=== PATIENT | male | born 1995 ===

== ENCOUNTER 2024-04-22 12:12 | Inpatient (IN) ==
[2024-04-22 13:24] LABS: BASOPHILS % (AUTO) 0.4 %; EOSINOPHILS % (AUTO) 0.1 %; HCT - HEMATOCRIT 42.2 % (42.0-52.0); HGB - HEMOGLOBIN 13.9 g/dL (14.0-18.0); MEAN CORPUSCULAR HEMOGLOBIN 29.9 pg (27.0-31.0); MEAN CORPUSCULAR HGB CONC 32.9 g/dL (32.0-36.0); MEAN CORPUSCULAR VOLUME 90.8 fL (80.0-94.0); MEAN PLATELET VOLUME 8.5 fL (7.4-11.4); MONOCYTES % (AUTO) 6.8 %; PLT - PLATELET COUNT 404 10^3/uL (130-450); RED BLOOD COUNT 4.65 10^6/uL (4.70-6.10); RED CELL DISTRIBUTION WIDTH 12.9 % (12.0-15.0); WHITE BLOOD COUNT 21.2 x10^3/uL (4.8-10.8)
[2024-04-22 13:38] LABS: ALBUMIN 3.8 g/dL (3.2-5.5); ALBUMIN/GLOBULIN RATIO 0.8 (1.0-2.2); BILIRUBIN,TOTAL 0.5 mg/dL (0.2-1.0); CALCIUM 9.6 mg/dL (8.5-10.3); CREATININE 1.3 mg/dL (0.6-1.3); POTASSIUM 4.2 mmol/L (3.5-4.5); TOTAL PROTEIN 8.4 g/dL (6.4-8.9)
[2024-04-22 13:55] LABS: SLIDE REVIEW? Indicated
[2024-04-22 13:56] LABS: ABNORMAL LYMPHS % (MANUAL) 0 %
[2024-04-22 14:01] LABS: BAND NEUTROPHILS % (MANUAL) 13 %; DIFFERENTIAL COMMENT MANUAL DIFFERENTIAL; LYMPHOCYTES # (MANUAL) 1.3 10^3/uL (1.5-3.5); LYMPHOCYTES % (MANUAL) 6 %; MONOCYTES # (MANUAL) 1.7 10^3/uL (0.0-1.0); NEUTROPHILS # (MANUAL) 18.2 10^3/uL (1.5-6.6)
[2024-04-22 14:03] LABS: PLATELET ESTIMATE, MANUAL NORMAL (130-450,000) (NORMAL); PLATELET MORPHOLOGY NORMAL APPEARANCE (NORMAL); RBC MORPHOLOGY (MULTIPLE) NORMAL APPEARANCE (NORMAL); WBC MORPHOLOGY (MULTIPLE) 2+ TOXIC GRANULATION (NORMAL)
[2024-04-22] MEDS ORDERED: iohexoL-300 100 ML VIAL ONE ×2 (16:37→21:16)
[2024-04-22] MEDS ORDERED: DIATRIZOATE MEGLU/DIATRIZO SOD 30 ML BOTTLE PO ONE (16:37)
--- NOTE | 2024-04-22 16:37 | ED Physician Documentation ---
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 He says he only spent 1 night in the hospital and did not have a drain so presume it was not widely perforated anyway. He is not improving as would be expected with night sweats and persistent right sided abdominal pain. No measured fevers. He is moving his bowels okay. No nausea. Meds/Allgy Home Medications Ambulatory Orders Medication Instructions Recorded Confirmed hydrocodone 5 mg-acetaminophen 325 1 tab PO QID PRN pain 04/22/24 04/22/24 mg tablet ibuprofen 200 mg capsule 200 mg PO Q8H 04/22/24 04/22/24 Allergies Allergies Allergy/AdvReac Type Severity Reaction Status Date / Time No Known Drug Allergies Allergy Verified 04/22/24 12:43 [facility] Medical History Medical History (Updated 04/22/24 @ 22:09 by Deangelo Garcia MD) No pertinent past medical history Surgical History Surgical History (Updated 04/22/24 @ 16:52 by Tracey Saini RN) History of appendectomy Social History Social History (Updated 04/22/24 @ 16:52 by Tracey Saini RN) Smoking Status: Never smoker Do you vape?: No Relationship: Do you feel safe in your home environment?: Yes Suffered physical, verbal, emotional, or financial abuse?: No Exam Constitutional normal general appearance and no apparent distress Gastrointestinal He is quite tender to the right abdomen with positive Rovsing sign and some rebound tenderness. Neurology GCS 15 Results Vitals Vitals: Vital Signs - 24 hr 04/22/24 12:43 04/22/24 18:13 Temperature 36.6 C 36.7 C Temperature Source Tympanic Temporal Artery Scan Pulse Rate 90 75 Respiratory Rate 18 16 Blood Pressure 102/57 L 119/57 L O2 Saturation 98 98 O2 Source Room air Room air Pain Intensity 6 2 Oxygen O2 Source Room air Labs Labs: Laboratory Tests 04/22/24 04/22/24 13:19 16:41 WBC 21.2 H RBC 4.65 L Hgb 13.9 L Hct 42.2 MCV 90.8 MCH 29.9 MCHC 32.9 RDW 12.9 Plt Count 404 MPV 8.5 Neut # (Auto) Not Reportable Lymph # (Auto) Not Reportable [place] # (Auto) Not Reportable Eos # (Auto) Not Reportable Baso # (Auto) Not Reportable Absolute Nucleated RBC Not Reportable Total Counted 100 Band Neuts % (Manual) 13 H Abnorm Lymph % (Manual) 0 Nucleated RBC % Not Reportable Neutrophils # (Manual) 18.2 H Lymphocytes # (Manual) 1.3 L Monocytes # (Manual) 1.7 H Eosinophils # (Manual) 0.0 Basophils # (Manual) 0.0 Differential Comment MANUAL DIFFERENTIAL Manual Slide Review Indicated WBC Morphology 2+ TOXIC GRANULATION Platelet Estimate NORMAL (130-450,000) Platelet Morphology NORMAL APPEARANCE RBC Morph Micro Appear NORMAL APPEARANCE Sodium 134 L Potassium 4.2 Chloride 96 L Carbon Dioxide 30 Anion Gap 8.0 BUN 22 H Creatinine 1.3 Estimated GFR (MDRD) 65 L Glucose 117 H Calcium 9.6 Total Bilirubin 0.5 AST 67 H ALT 153 H Alkaline Phosphatase 128 H Total Protein 8.4 Albumin 3.8 Globulin 4.6 H Albumin/Globulin Ratio 0.8 L Lipase 15 Urine Color YELLOW Urine Clarity CLEAR Urine pH 6.0 Ur Specific [place] >=1.030 H Urine Protein 30 H Urine Glucose (UA) NEGATIVE Urine Ketones NEGATIVE Urine Occult Blood NEGATIVE Urine Nitrite NEGATIVE Urine Bilirubin NEGATIVE Urine Urobilinogen 0.2 (NORMAL) Ur Leukocyte Esterase NEGATIVE Urine RBC None Seen Urine WBC 0-3 Ur Squamous Epith Cells NONE SEEN Urine Bacteria None Seen Urine Casts 0-2 Hyaline Casts Ur Microscopic Review INDICATED Urine Culture Comments NOT INDICATED Rads (name of study) CT A/P: Relevant Findings:: Final report received and EMP independent interpret ation of test Interpretation: Stomach, bowel and peritoneum: As seen on earlier studies, there is significant wall thickening involving ascending colon with marked narrowing of the lumen. Ill-defined peripherally enhancing fluid collection and air is seen involving posterior lateral wall of the ascending colon with the largest pocket measures 4.5 x 2.8 x 7.7 cm in size in right lower quadrant series 287, series 6 image 26 and series 4 image 50. No definite extravasated oral contrast into this area is seen,. No other area of abnormal bowel wall thickening. PD Medical Decision Making ED course ED course: 28-year-old gentleman is 2 weeks out laparoscopic appendectomy that was reported to be uncomplicated per his description with persistent abdominal pain, some concerning signs on exam, he has a white count of 21,000 with a bandemia, modest elevation in his liver enzymes. Will obtain CT imaging. He declines anything for pain on initial evaluation. Subsequent imaging demonstrated a large pelvic abscess. Discussed with radiologist who felt he could be drained interventionally here. Discussed with our on-call surgeon, Dr Ramirez who will follow along, decision to admit made at 9:55 PM on April 22, unfortunately there are no beds available in the hospital and he is currently third in line boarding for admission in the emergency department. Discharge Plan Discharge Patient Disposition: ED Place in Observation Condition: Stable Clinical Impression: Abscess, intra-abdominal, postoperative Prescriptions: No Action hydrocodone-acetaminophen 5-325 mg tablet 1 tab PO QID PRN (Reason: pain) ibuprofen 200 mg capsule 200 mg PO Q8H Print Language: Urdu Stand Alone Forms: PCP List
[2024-04-22 16:55] LABS: BILIRUBIN,URINE NEGATIVE (NEGATIVE); GLUCOSE, URINE (UA) NEGATIVE (NEGATIVE); KETONES,URINE (UA) NEGATIVE (NEGATIVE); LEUKOCYTE ESTERASE, URINE NEGATIVE (NEGATIVE); NITRITE,URINE NEGATIVE (NEGATIVE); OCCULT BLOOD,URINE NEGATIVE (NEGATIVE); PROTEIN,URINE 30 mg/dL (NEGATIVE); UROBILINOGEN,URINE 0.2 (NORMAL) E.U./dL (NORMAL)
[2024-04-22 16:58] LABS: CLARITY,URINE CLEAR (CLEAR)
[2024-04-22 17:09] LABS: BACTERIA,URINE None Seen /HPF (None Seen); CASTS, URINE 0-2 Hyaline Casts /LPF; RBC,URINE None Seen /HPF (0-5); SQUAMOUS EPITHELIAL CELL,UR NONE SEEN (<= Few); WBC,URINE 0-3 /HPF (0-3)
--- NOTE | 2024-04-22 19:28 | CT Report ---
PROCEDURE: CT Abdomen/Pelvis W INDICATIONS: IV and PO, R abd pain 2 wk s/p appy CONTRAST: iohex 300 100ml TECHNIQUE: After the administration of intravenous contrast, a CT scan of the abdomen and pelvis was performed. Images were recorded and evaluated at appropriate window settings. Reformats: coronal and sagittal. F or radiation dose reduction, the following was used: automated exposure control, adjustment of mA and /or kV according to patient size. COMPARISON: None. FINDINGS: Image quality: Diagnostic. Lower chest: No pleural effusion or consolidation. Liver: Irregular hepatic hypodensity medially in segment 6 measuring 1.2 cm, nonspecific. No solid ma ss. Gallbladder: Decompressed. Biliary tree: No intrahepatic or extrahepatic dilation, accounting for age. Spleen: No splenomegaly. Pancreas: No pancreatic ductal dilation. Adrenals: No adrenal nodule. Kidneys and ureters: Symmetric enhancement. No hydronephrosis or nephrolithiasis. No solid mass or cy st requiring follow-up. No hydroureter. Stomach, bowel and peritoneum: The contour of the proximal colon is completely ill-defined. In the ex pected location, there is mild pericolonic fluid, several irregular areas of fluid with peripheral en hancement, many of which may be segments of colon. Versus abscesses. Oral contrast does not opacify t he colon. And stops just prior to the ileocecal valve region. There is a staple line in the right low er quadrant, presumably of appendectomy, there is also a faintly enhancing fluid collections caudal t o this. Small bowel loops appear normal, containing by mouth contrast. The visible portions of the colon cont ains semisolid and solid stool. No visible extraluminal gas. Lymph nodes: No central or retroperitoneal adenopathy. Vessels: No infrarenal aortic aneurysm. Patent portal vein. PELVIS Reproductive organs: Unremarkable. Bladder: No abnormal wall thickening, accounting for underdistention. Pelvic lymph nodes: No pelvic adenopathy by size criteria. Bones: No aggressive osseous abnormality. Other: No significant ventral or inguinal hernia. IMPRESSION: Findings are suspicious for complication post appendectomy, probably including periappendiceal/alley lonic abscesses. The ascending colon is not defined. Recommend reimaging in approximately 4 to 6 hour s in hopes of opacifying of the colon lumen. Ill-defined hepatic hypodensity. Continued attention on follow-up exams recommended. Reviewed by: Alyssa Foote MD on 04/22/2024 7:26 PM PST Approved by: Alyssa Foote MD on 04/22/2024 7:26 PM PST Station ID: [id number]
[2024-04-22] MEDS: iohexoL-300 100 ML VIAL IVP ONE (19:31)
[2024-04-22] MEDS: PIPERACILLIN/TAZOBACTAM 3.375 GM in SODIUM CHLORIDE 0.9% MINIBAG 100 ML IV STA (19:59)
[2024-04-22] MEDS: D5.45NS W/20 MEQ KCL 1,000 ML IV STA (20:30)
--- NOTE | 2024-04-22 21:54 | CT Report ---
PROCEDURE: CT Abdomen/Pelvis W INDICATIONS: reeval per radiololgy CONTRAST: iohex 300 100ml TECHNIQUE: After the administration of intravenous contrast, a CT scan of the abdomen and pelvis was performed. Images were recorded and evaluated at appropriate window settings. Reformats: coronal and sagittal. F or radiation dose reduction, the following was used: automated exposure control, adjustment of mA and /or kV according to patient size. COMPARISON: Earlier study from the same date. FINDINGS: Image quality: Diagnostic. Lower chest: Unremarkable. Liver: Irregular appearing hypodensity involving posterior segment of inferior right hepatic lobe is again seen and unchanged. Gallbladder: Decompressed. No calcified old films are significant wall thickening. Biliary tree: No intrahepatic or extrahepatic dilation, accounting for age. Spleen: No splenomegaly. Pancreas: No pancreatic ductal dilation. Adrenals: No adrenal nodule. Kidneys and ureters: No hydronephrosis. No renal cystic lesion which requires follow up. No solid mas s. Stomach, bowel and peritoneum: As seen on earlier studies, there is significant wall thickening invol ving ascending colon with marked narrowing of the lumen. Ill-defined peripherally enhancing fluid col lection and air is seen involving posterior lateral wall of the ascending colon with the largest pock et measures 4.5 x 2.8 x 7.7 cm in size in right lower quadrant series 287, series 6 image 26 and seri es 4 image 50. No definite extravasated oral contrast into this area is seen,. No other area of abnor mal bowel wall thickening. Lymph nodes: No central or retroperitoneal adenopathy. Vessels: No infrarenal aortic aneurysm. Patent portal vein. PELVIS Reproductive organs: Unremarkable. Bladder: No abnormal wall thickening, accounting for underdistention. Pelvic lymph nodes: No pelvic adenopathy by size criteria. Bones: No aggressive osseous abnormality. Other: No significant ventral or inguinal hernia. IMPRESSION: 1. Suggestion of abscess collections along involving posterior lateral wall of ascending colon with d iffuse ascending colonic wall thickening and narrowing of the lumen as described above. No peritoneal free fluid of free air. No definite oral contrast extravasation is seen. 2. Stable appearing ill-defined hypodensity involving inferior right hepatic lobe. Reviewed by: Marko Lopez MD on 04/22/2024 9:53 PM PST Approved by: Marko Lopez MD on 04/22/2024 9:53 PM PST Station ID: [id number]
[2024-04-22] MEDS ORDERED: ONDANSETRON 4 MG/2 ML VIAL IVP PRN (22:14)
[2024-04-22] MEDS ORDERED: ACETAMINOPHEN 500 MG TABLET PO PRN (22:14)
[2024-04-23] MEDS: PIPERACILLIN/TAZOBACTAM 3.375 GM in SODIUM CHLORIDE 0.9% MINIBAG 100 ML IV SCH (00:08)
[2024-04-23 05:37] LABS: BASOPHILS % (AUTO) 0.3 %; EOSINOPHILS # (AUTO) 0.1 10^3/uL (0.0-0.7); EOSINOPHILS % (AUTO) 0.8 %; HCT - HEMATOCRIT 38.4 % (42.0-52.0); HGB - HEMOGLOBIN 12.6 g/dL (14.0-18.0); LYMPHOCYTES # (AUTO) 1.1 10^3/uL (1.5-3.5); LYMPHOCYTES % (AUTO) 9.4 %; MEAN CORPUSCULAR HEMOGLOBIN 29.4 pg (27.0-31.0); MEAN CORPUSCULAR HGB CONC 32.8 g/dL (32.0-36.0); MEAN CORPUSCULAR VOLUME 89.7 fL (80.0-94.0); MEAN PLATELET VOLUME 8.5 fL (7.4-11.4); MONOCYTES # (AUTO) 0.8 10^3/uL (0.0-1.0); MONOCYTES % (AUTO) 6.7 %; NEUTROPHILS # (AUTO) 9.7 10^3/uL (1.5-6.6); NEUTROPHILS % (AUTO) 82.1 %; PLT - PLATELET COUNT 361 10^3/uL (130-450); RED BLOOD COUNT 4.28 10^6/uL (4.70-6.10); RED CELL DISTRIBUTION WIDTH 12.8 % (12.0-15.0); WHITE BLOOD COUNT 11.8 x10^3/uL (4.8-10.8)
[2024-04-23 05:50] LABS: CALCIUM 8.4 mg/dL (8.5-10.3); POTASSIUM 3.7 mmol/L (3.5-4.5)
--- NOTE | 2024-04-23 06:43 | PROVIDER PROGRESS NOTE ---
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 He now presents with similar symptoms and leukocytosis. CT id entifies a RLQ fluid collection which is consistent with a post-op abscess. There may be a fecalith within the fluid (my interpretation). The hospital has no inpatient beds therefore he was treated overnight with IV Zosyn and his leukocytosis has improved (22k -->11.8k) . He continues to have mild RLQ discoomfort and tenderness to palpation. His VS are normal and he is not febrile. The plan is for IR drainage today after which he may be discharged to home (RAFI) on oral Augmentin for 10 days. He should be on limited duty status until the drain is removed and the abscess resolved. Follow-up arrangements for drain care can be in our surgical clinic (Call [phone] to make arrangements for him to be seen by one of our surgeons in 10-14 days). Please call me if you have questions. Willy Ramirez MD, FACS General Surgery Service [phone]
--- NOTE | 2024-04-23 07:14 | ED Physician Documentation ---
ED Addendum Addendum Addendum: Patient endorsed to me by physician at 10pm shift change. ALEKS. Patient endorsed to Dr. Barrett at 7am shift change. Discharge Plan Discharge Patient Disposition: ED Place in Observation Condition: Stable Clinical Impression: Abscess, intra-abdominal, postoperative Prescriptions: No Action hydrocodone-acetaminophen 5-325 mg tablet 1 tab PO QID PRN (Reason: pain) ibuprofen 200 mg capsule 200 mg PO Q8H Print Language: Thai Stand Alone Forms: PCP List
[2024-04-23] MEDS: PANTOPRAZOLE 40 MG TABLET PO SCH (07:43)
[2024-04-23] MEDS ORDERED: LIDOCAINE-MPF 1% 5 ML VIAL ONE (07:56)
[2024-04-23] MEDS ORDERED: fentaNYL 100 MCG/2 ML VIAL ONE ×3 (08:02→16:10)
[2024-04-23] MEDS ORDERED: MIDAZOLAM 2 MG/2 ML VIAL ONE ×2 (08:02→14:30)
--- NOTE | 2024-04-23 09:05 | HISTORY & PHYSICAL EXAMINATION ---
Chief Complaint Chief Complaint Chief Complaint: Abdominal pain History of Present Illness Admitted From Admitted From:: ED History Obtained From History obtained from: Patient Exam Limitations: None History of Present Illness HPI Comment/Other: Nena is a 28 year old male who underwent laparoscopic appendectomy 2 weeks ago while visiting family in [facility]. He did well initially but recently developed similar symptoms with fatigue and RLQ pain with movement. He denies diarrhea, fevers, or chills. He tells me that his appendectomy was uncomplicated and that he did not have ruptured appendicitis. He presented to the ED last night and was found to have a leukocytosis of 22,[address] scan which was read as a right lower quadrant abscess. As our facility was full yesterday, he remained in the ED and was started on IV Zosyn with the plan to offer IR drainage today. This morning he felt somewhat better and his leukocytosis improved. My review of the CT confirmed the presence of a RLQ abscess but I also suspected that there was a fecalith within the fluid that was not recorded on the official CT. I reviewed the CT with another radiologist and he agreed. I decided to cancel the IR drainage procedure and offer open I&D of the abscess site under general anesthesia so that the abscess is cleared of the purulence and the fecalith. As we have bed availability at this time, the procedure will be performed at this facility later today. Meds/Allgy Home Medications Ambulatory Orders Medication Instructions Recorded Confirmed hydrocodone 5 mg-acetaminophen 325 1 tab PO QID PRN pain 04/22/24 04/22/24 mg tablet ibuprofen 200 mg capsule 200 mg PO Q8H 04/22/24 04/22/24 Allergies Allergies Allergy/AdvReac Type Severity Reaction Status Date / Time No Known Drug Allergies Allergy Verified 04/22/24 12:43 [facility] Medical History Medical History (Updated 04/22/24 @ 22:09 by Deangelo Garcia MD) No pertinent past medical history Surgical History Surgical History (Updated 04/22/24 @ 16:52 by Tracey Saini RN) History of appendectomy Social History Social History (Updated 04/22/24 @ 16:52 by Tracey Saini RN) Smoking Status: Never smoker Do you vape?: No Relationship: Do you feel safe in your home environment?: Yes Suffered physical, verbal, emotional, or financial abuse?: No POLST Patient has POLST: No Review of Systems Constitutional Reports: Fatigue, Malaise and Poor appetite Gastrointestinal Reports: Abdominal pain Endocrine Reports: Fatigue Prior Level of Functionality: Independent Exam Constitutional normal general appearance and no apparent distress HENMT normocephalic, head/scalp atraumatic and hearing grossly normal bilaterally Eyes PERRL, EOMs intact bilaterally, conjunctivae normal and no scleral icterus Neck/C-Spine trachea midline Lymph no lymphadenopathy noted Chest inspection of chest normal and palpation of chest normal Respiratory breath sounds equal bilaterally, normal respiratory effort, clear to auscultation bilaterally and no wheezes Cardiovascular normal heart rate noted, regular rhythm noted and no murmur Gastrointestinal abdomen soft to palpation Tender to palpation in RLQ. Active bowel sounds Genitourinary no CVA tenderness Extremities normal to inspection and full ROM Neurology no movement abnormality noted, no focal motor deficit noted and no sensory deficits noted Psychiatry mental status grossly normal, oriented x3, thought process normal, cooperative and affect normal Skin skin color normal and no rash Image Body (4 view):  2 1. 2. Conclusion/Plan Problem List (1) Abscess, intra-abdominal, postoperative: Plan: 1) Admit to [facility] with plan for overnight stay 2) I&D of RLQ abscess through a lateral flank incision under GETA 3) IV Zosyn while an inpatient followed by oral antibiotics for 7-10 days Consent: [facility] has been counseled for the procedure, it's indications, risks, benefits and expected outcome as well as alternative therapies. We specifically discussed risks associated with anesthesia, bleeding, infection, injury to surrounding structures which may require additional surgery, and the possible need for conversion to an open procedure. We also discussed the unlikely need for a blood transfusion with its risks and benefits. [facility] understands, agrees, and consents to the proposed operative strategy and requests that we proceed with the procedure as outlined in our discussion. Willy Ramirez MD, FACS General Surgery Service Lab Results 04/23/24 05:30 04/23/24 05:30
--- NOTE | 2024-04-23 09:08 | PHARMACY PROGRESS NOTE ---
Best Possible Medication History Admit Date and Time: Home Medications Medication Instructions Recorded Confirmed Type ibuprofen 200 mg capsule 200 mg PO Q8H 04/22/24 04/22/24 History Processed by: Pharmacy (Medication Reconciliation completed by [employer] SupervisorTaz) Medications reviewed in ED?: Yes Medication History completed: Yes Patient Interview: Completed [facility] Statement: As the person ultimately responsible for medication therapy, providers are able to order a medication from an existing home medication list in [facility] via the "Reconcile Routine" prior to Confirmation of that medication by technical sales support manager. Such practice is discouraged except when the physician, in their clinical judgment, deems that a medical need exists for a medication without regard to previous use.
--- NOTE | 2024-04-23 12:54 | ED Physician Documentation ---
ED Addendum Addendum Addendum: I did receive an update from Dr. Spencer that rather than the patient going for an IR guided drainage, he would like to take the patient to the operating room instead. This is planned for 1500 this afternoon. The patient will then be admitted overnight for observation. Patient has been stable and without complaints here. Final impression: 1. Postoperative abscess Disposition: Admit to same-day surgery in serious but stable condition. Discharge Plan Discharge Patient Disposition: ED Place in Observation Condition: Stable Clinical Impression: Abscess, intra-abdominal, postoperative Prescriptions: No Action ibuprofen 200 mg capsule 200 mg PO Q8H Print Language: French Stand Alone Forms: PCP List
[2024-04-23] MEDS ORDERED: LIDOCAINE 1%-EPI 1:100000 20 ML MDV ONE (14:33)
[2024-04-23] MEDS ORDERED: BUPIVACAINE 0.5% PF 10 ML VIAL ONE (14:33)
[2024-04-23] MEDS ORDERED: PROPOFOL 200 MG/20 ML VIAL IVP ONE (14:35)
[2024-04-23] MEDS ORDERED: LIDOCAINE-PF 2% 10 ML AMP SUBQ ONE (14:35)
--- NOTE | 2024-04-23 14:41 | ANESTHESIA PROCEDURE NOTE ---
Pre-Anesthesia VS, & Labs Diagnosis Surgical Diagnosis:: intraabdominal abcess Procedure Procedure: I&D intra-abdominal abcess Vitals Vital Signs: Temp Pulse Resp BP Pulse Ox 36.7 C 62 18 104/60 97 04/22/24 18:13 04/23/24 05:00 04/23/24 05:00 04/23/24 05:00 04/23/24 05:00 NPO NPO: >8 hours Lab Results Current Lab Results: Laboratory Tests 04/23/24 05:30: WBC 11.8 H, RBC 4.28 L, Hgb 12.6 L, Hct 38.4 L, MCV 89.7, MCH 29.4, MCHC 32.8, RDW 12.8, Plt Count 361, MPV 8.5, Neut # (Auto) 9.7 H, Lymph # (Auto) 1.1 L, [place] # (Auto) 0.8, Eos # (Auto) 0.1, Baso # (Auto) 0.0, Absolute Nucleated RBC 0.00, Nucleated RBC % 0.0, Sodium 135, Potassium 3.7, Chloride 101, Carbon Dioxide 27, Anion Gap 7.0, BUN 17, Creatinine 1.0, Estimated GFR (MDRD) 88 L, Glucose 110 H, Calcium 8.4 L 04/22/24 13:19: WBC 21.2 H, RBC 4.65 L, Hgb 13.9 L, Hct 42.2, MCV 90.8, MCH 29.9, MCHC 32.9, RDW 12.9, Plt Count 404, MPV 8.5, Neut # (Auto) Not Reportable, Lymph # (Auto) Not Reportable, [place] # (Auto) Not Reportable, Eos # (Auto) Not Reportable, Baso # (Auto) Not Reportable, Absolute Nucleated RBC Not Reportable, Total Counted 100, Band Neuts % (Manual) 13 H, Abnorm Lymph % (Manual) 0, Nucleated RBC % Not Reportable, Neutrophils # (Manual) 18.2 H, Lymphocytes # (Manual) 1.3 L, Monocytes # (Manual) 1.7 H, Eosinophils # (Manual) 0.0, Basophils # (Manual) 0.0, Differential Comment MANUAL DIFFERENTIAL, Manual Slide Review Indicated, WBC Morphology 2+ TOXIC GRANULATION, Platelet Estimate NORMAL (130-450,000), Platelet Morphology NORMAL APPEARANCE, RBC Morph Micro Appear NORMAL APPEARANCE, Sodium 134 L, Potassium 4.2, Chloride 96 L, Carbon Dioxide 30, Anion Gap 8.0, BUN 22 H, Creatinine 1.3, Estimated GFR (MDRD) 65 L, Glucose 117 H, Calcium 9.6, Total Bilirubin 0.5, AST 67 H, ALT 153 H, Alkaline Phosphatase 128 H, Total Protein 8.4, Albumin 3.8, Globulin 4.6 H, A lbumin/Globulin Ratio 0.8 L, Lipase 15 04/23/24 05:30 04/23/24 05:30 Meds/Allgy Home Medications Ambulatory Orders Medication Instructions Recorded Confirmed ibuprofen 200 mg capsule 200 mg PO Q8H 04/22/24 04/22/24 Allergies Allergies Allergy/AdvReac Type Severity Reaction Status Date / Time No Known Drug Allergies Allergy Verified 04/22/24 12:43 [facility] Medical History Medical History (Updated 04/22/24 @ 22:09 by Deangelo Garcia MD) No pertinent past medical history Surgical History Surgical History (Updated 04/22/24 @ 16:52 by Tracey Saini RN) History of appendectomy Social History Social History (Updated 04/22/24 @ 16:52 by Tracey Saini RN) Smoking Status: Never smoker Do you vape?: No Relationship: Do you feel safe in your home environment?: Yes Suffered physical, verbal, emotional, or financial abuse?: No POLST Patient has POLST: No POLST Status: Full Code Anesthesia Exam (Expanded) Exam General: Alert, Oriented x3 and Cooperative Dental: WNL Mouth Openin Fingerbreadth Neck Mobility: Normal Mallampati classification: I Thyromental Distance: 4-6 cm Respiratory: Lungs clear Cardiovascular: Regular rate Plan Problem List (1) Abscess, intra-abdominal, postoperative: Plan: 1) Admit to [facility] with plan for overnight stay 2) I&D of RLQ abscess through a lateral flank incision under GETA 3) IV Zosyn while an inpatient followed by oral antibiotics for 7-10 days Consent: [facility] has been counseled for the procedure, it's indications, risks, benefits and expected outcome as well as alternative therapies. We specifically discussed risks associated with anesthesia, bleeding, infection, injury to surrounding structures which may require additional surgery, and the possible need for conversion to an open procedure. We also discussed the unlikely need for a blood transfusion with its risks and benefits. [place] understands, agrees, and consents to the proposed operative strategy and requests that we proceed with the procedure as outlined in our discussion. Willy Ramirez MD, [facility] General Surgery Service Plan Anesthesia Type: General Consent for Procedure(s) Verified and Reviewed: Yes Code Status: Attempt Resuscitation ASA Classification ASA classification: 1-Healthy patient Is this case an emergency?: No
[2024-04-23] MEDS ORDERED: ROCURONIUM 50 MG/5 ML VIAL ONE (14:42)
[2024-04-23] MEDS ORDERED: NALOXONE 0.4 MG/ML VIAL IVP PRN (14:44)
[2024-04-23] MEDS ORDERED: ePHEDrine 50 MG/ML VIAL IVP PRN (14:44)
[2024-04-23] MEDS ORDERED: MORPHINE 2 MG/ML CARPUJECT IVP PRN (14:44)
[2024-04-23] MEDS ORDERED: ONDANSETRON 4 MG/2 ML VIAL IVP PRN (14:44)
[2024-04-23] MEDS ORDERED: METOCLOPRAMIDE 10 MG/2 ML VIAL IVP PRN (14:44)
[2024-04-23] MEDS ORDERED: ATROPINE ABBOJECT 1 MG/10 ML SYRINGE IVP PRN (14:44)
[2024-04-23] MEDS ORDERED: SUGAMMADEX 200 MG/2 ML VIAL IVP ONE (15:33)
[2024-04-23] MEDS: LACTATED RINGERS 1,000 ML IV SCH ×2 (15:50→16:45)
--- NOTE | 2024-04-23 16:06 | OPERATIVE REPORT ---
Operative Report General Procedure Data: Operation Date: 04/23/24 15:00 Proposed Procedures p Incision and Drainage RETROPERITONEAL ABSCESS(Not Applicable) - Willy Ramirez MD Actual Procedures p Incision and Drainage RETROPERITONEAL ABSCESS(Not Applicable) - Willy Ramirez MD Pre-Op Diagnosis: ABD PX Anesthesia Type General Case Staff Anesthesia Provider: Pam Flores Anesthesia Provider: Vonda Jimenez Assisting Provider: Willy Ramirez Case Times Into Recovery: 04/23/24 15:50 Procedure Start: 04/23/24 15:16 Procedure End: 04/23/24 15:42 Time out: 04/23/24 15:15 Other Other Information/Narrative: PROCEDURE DATE: 04/23/2024 PREOPERATIVE DIAGNOSIS: Nena is a [address] evidence of a post-op RLQ abscess with associated fecalith. He is taken to the operating room for incision and drainage of the post-operative abscess with removal of the fecalith. POSTOPERATIVE DIAGNOSIS: Same NAME OF PROCEDURE: Incision and drainage of right lower quadrant post-op abscess SURGEON: Willy Ramirez MD, FACS [facility] SURGEON: Samia Wei MD ANESTHESIA: General endotracheal. ESTIMATED BLOOD LOSS: 5 mL. DRAINS: Babatunde channel drain SPECIMEN: Purulence, fecalith in fragments COMPLICATIONS None FINDINGS: Thick purulence was identified in the retroperitoneal space extending from the RLQ to the edge of the liver. DESCRIPTION OF OPERATION: After consent for the procedure was obtained, the patient was brought to the operating room where in the supine position, general endotracheal anesthesia was administered. A surgical time-out was performed, indicating the patient and the procedure to be performed. The abdomen was pre pped with alcohol-free chloroprep and draped in a sterile fashion. 1% Lidocaine with epinephrine in a 50/50 mix with 1/4 % Marcaine was used for local anesthesia throughout the procedure The location of the skin incision was infiltrated with local anesthesia. A right lower quadrant Eladio-Kei muscle splitting incision was used to gain exposure of the posterior peritoneum which was taught and inflamed. The abscess was entered with blunt digital dissection. Thick, non-malodorus purulence was aspirated and sent for anaerobic and aerobic culture. The fecalith was in the distal aspect of the abscess near the edge of the liver and was easily fragmented. The fragments were irrigated from the abscess cavity with warm sterile saline using soft large and small caliber Genao red rubber cat heters. Bleeding was minimal. The retroperitoneal space was irrigated with warm, sterile saline. The irrigant was aspirated. A Babatunde channel drain was placed into the retroperitoneal space and brought out a separate stab incision in the lower abdominal wall. The drain was secured to the skin with a 3-0 nylon suture. A search was made for sponges, packs, instruments, and needles. None were found. The sponge, pack, instrument, and needle counts were relayed to me as being correct. The anterior fascia of the wound was approximated with 2-0 Vicryl and the skin approximated with sherin overlaid with Xeroform gauze. Dressings were placed. The patient tolerated the procedure well and was brought to the recovery room with stable vital signs.
[2024-04-23] MEDS: fentaNYL 100 MCG/2 ML VIAL IVP PRN (16:09)
[2024-04-23] MEDS ORDERED: HYDROmorphone 0.5 MG/0.5 ML SYRINGE ONE (16:18)
[2024-04-23] MEDS: HYDROmorphone 0.5 MG/0.5 ML SYRINGE IVP PRN (16:21)
[2024-04-23] MEDS: SODIUM CHLORIDE FLUSH 0.9% 10 ML SYRINGE IVP SCH (16:45)
[2024-04-23] MEDS: KETOROLAC 30 MG/ML VIAL IVP SCH ×2 (17:47→23:50)
--- NOTE | 2024-04-23 17:55 | ANESTHESIA POST OP EVALUATION ---
Anesthesia Post Eval Post Anesthesia Eval Vitals: Last Vital Signs Temp 36.6 C 04/23/24 17:15 Pulse 71 04/23/24 17:15 Resp 24 04/23/24 17:15 BP 113/62 04/23/24 17:15 Pulse Ox 95 04/23/24 17:15 CV Function Including HR & BP: Stable Pain Control: Satisfactory Nausea & Vomiting: Negative Mental Status: Baseline Respiratory Status: Airway Patent Hydration Status: Satisfactory Anesthesia Complications: None
[2024-04-23] MEDS: ACETAMINOPHEN 500 MG TABLET PO PRN (21:39)
[2024-04-24] MEDS: PIPERACILLIN/TAZOBACTAM 3.375 GM in SODIUM CHLORIDE 0.9% MINIBAG 100 ML IV SCH (01:59)
[2024-04-24 06:27] LABS: BASOPHILS % (AUTO) 0.3 %; EOSINOPHILS % (AUTO) 0.3 %; HCT - HEMATOCRIT 39.4 % (42.0-52.0); HGB - HEMOGLOBIN 12.9 g/dL (14.0-18.0); LYMPHOCYTES # (AUTO) 1.5 10^3/uL (1.5-3.5); LYMPHOCYTES % (AUTO) 10.8 %; MEAN CORPUSCULAR HEMOGLOBIN 29.7 pg (27.0-31.0); MEAN CORPUSCULAR HGB CONC 32.7 g/dL (32.0-36.0); MEAN CORPUSCULAR VOLUME 90.8 fL (80.0-94.0); MEAN PLATELET VOLUME 8.6 fL (7.4-11.4); MONOCYTES # (AUTO) 0.9 10^3/uL (0.0-1.0); MONOCYTES % (AUTO) 6.5 %; NEUTROPHILS # (AUTO) 11.3 10^3/uL (1.5-6.6); NEUTROPHILS % (AUTO) 81.3 %; PLT - PLATELET COUNT 372 10^3/uL (130-450); RED BLOOD COUNT 4.34 10^6/uL (4.70-6.10); RED CELL DISTRIBUTION WIDTH 12.8 % (12.0-15.0); WHITE BLOOD COUNT 13.9 x10^3/uL (4.8-10.8)
[2024-04-24 06:42] LABS: CALCIUM 8.6 mg/dL (8.5-10.3); POTASSIUM 4.3 mmol/L (3.5-4.5)
--- NOTE | 2024-04-24 07:06 | PROVIDER PROGRESS NOTE ---
Progress Note Progress Note Progress Note: General Surgery Progress Note Hospital Day # 2 - RLQ abscess s/p laparoscopic appendectomy 2 weeks ago at other facility POD # 1, I&D retroperitoneal RLQ abscess Code Status: Full ASSESSMENT: 1) Slow improvement. RLQ incisional discomfort needs better control PLAN: 1) Add IV Dilaudid and Gabapentin; Switch from IV Ketorolac to oral Ibuprofen 2) Advance to general diet 3) Ambulate 4) Plan is to discharge to home with drain in place on oral antibiotics as soon as pain is under better control. Drain can be removed in 7-10 days as an out- patient. <><><><><> PERTINENT INTERVAL ISSUES: None S: RLQ incisional discomfort. Tolerated clear liquid diet yesterday and would like to try solid food. Has ambulated and urinated OBJECTIVE: I/O: 2747/2621 VS: BP 105/58; P 56; RR 16; T 36.5 EXAMINATION: MENTAL STATUS: AAO; Comfortable although movement causes increase in RLQ discomfort EYES: Pupils equal, round and reactive to light, sclera anicteric, EARS, NOSE, MOUTH, THROAT: Normal hearing, Oral mucous membranes moist and without lesions; NECK: No crepitus, lymphadenopathy, or thyromegaly LUNGS: Clear to auscultation without wheezing; No use of accessory muscles to breathe CARDIOVASCULAR: Heart-NSR without murmurs; ABD: Soft, Non-distended; Incision dressing dry; Drain output 125/SS ; few BS EXTREMITIES: No clubbing, cyanosis, infections SKIN: Anicteric; No rashes, lesions, ulcerations LABS: H&H 12.9/39.4; WBC 13.9; PLT 372K; NA 135; K 4.3; Cr 1.0; Glu 111 CULTURES: RLQ abscess - Gm Stain - Gm - bacilli IMAGING: None today ANTIMICROBIALS: IV Zosyn PAIN CONTROL: Oxycodone PO prn, Ketorolac IV, Acetaminophen VTEP: Chemical: None Mechanical: SCD Willy Ramirez MD, FACS General Surgery Service
[2024-04-24] MEDS: PANTOPRAZOLE 40 MG TABLET PO SCH (09:02)
[2024-04-24] MEDS: IBUPROFEN 600 MG TABLET PO SCH ×2 (11:37→23:50)
[2024-04-24] MEDS: oxyCODONE 5 MG TABLET PO PRN (12:42)
[2024-04-24] MEDS: ONDANSETRON 4 MG/2 ML VIAL IVP PRN (12:42)
--- NOTE | 2024-04-24 14:16 | PROVIDER PROGRESS NOTE ---
Progress Note Progress Note Progress Note: General Surgery Progress Note S: Nena walked around the hallway and became nauseated and uncomfortable mainly in the RLQ near the incision. [facility] and the commissary is much farther away than the distance he walked today. In addition, he will have to negotiate stairs to get to his room. O: VSS, afeb; The RLQ incision is inspected and is clean and dry. There is no skin erythema or wound drainage. The right lower flank is somewhat indurated from the drainage procedure. The drain is intact but is now pulling thicker purulence. A: RLQ retroperitoneal abscess, s/p I&D. The patient is not ready for discharge and will need several more days of IV antibiotics to manage this infection. P: Continue multimodality pain control; Continue IV Zosyn and adjust per culture and sensitivity results; Ambulate; Continue regular diet as tolerated Willy Ramirez MD, FACS General Surgery Service
[2024-04-24] MEDS: GABAPENTIN 100 MG CAPSULE PO SCH (14:49)
[2024-04-25] MEDS: HYDROmorphone 0.5 MG/0.5 ML SYRINGE IVP PRN (05:41)
[2024-04-25 05:52] LABS: BASOPHILS # (AUTO) 0.1 10^3/uL (0.0-0.1); BASOPHILS % (AUTO) 0.5 %; EOSINOPHILS # (AUTO) 0.1 10^3/uL (0.0-0.7); EOSINOPHILS % (AUTO) 0.5 %; HCT - HEMATOCRIT 35.3 % (42.0-52.0); HGB - HEMOGLOBIN 11.9 g/dL (14.0-18.0); LYMPHOCYTES # (AUTO) 1.4 10^3/uL (1.5-3.5); LYMPHOCYTES % (AUTO) 7.9 %; MEAN CORPUSCULAR HEMOGLOBIN 30.4 pg (27.0-31.0); MEAN CORPUSCULAR HGB CONC 33.7 g/dL (32.0-36.0); MEAN CORPUSCULAR VOLUME 90.1 fL (80.0-94.0); MEAN PLATELET VOLUME 8.9 fL (7.4-11.4); MONOCYTES # (AUTO) 0.4 10^3/uL (0.0-1.0); MONOCYTES % (AUTO) 2.4 %; NEUTROPHILS # (AUTO) 15.4 10^3/uL (1.5-6.6); NEUTROPHILS % (AUTO) 87.8 %; PLT - PLATELET COUNT 305 10^3/uL (130-450); RED BLOOD COUNT 3.92 10^6/uL (4.70-6.10); RED CELL DISTRIBUTION WIDTH 12.9 % (12.0-15.0); WHITE BLOOD COUNT 17.5 x10^3/uL (4.8-10.8)
[2024-04-25 06:13] LABS: CALCIUM 8.2 mg/dL (8.5-10.3)
--- NOTE | 2024-04-25 06:41 | PROVIDER PROGRESS NOTE ---
Progress Note Progress Note Progress Note: General Surgery Progress Note S: Nhut doesn't feel well. He has RLQ and right flank discomfort with ambulation. He generated a fever last night. He is having bowel motions and eating but his appetite is poor. O: VS: T 36.7, P 69, RR 16; BP 108/60 Awake and oriented Abdomen is soft with active bowel sounds. His right flank is tender but without evidence of a local wound infection. His drain is pulling thick, dark purule nce. WBC has increased to 17.7k No definitive culture results A: Continued retroperitonitis with purulence from drain clinical exam. Plan: 1) Switch from Zosyn to Ceftriaxone/Flagyl 2) CT abdomen and pelvis to determine the extent of the infection 3) Patient will likely require re-exploration of wound with improved drainage or formal laparotomy to gain source control of this infection My shift ends this morning and I will discuss this case with Dr. Nevarez who is on-call for surgical services today. Willy Ramirez MD, FACS General Surgery Service
[2024-04-25] MEDS: PANTOPRAZOLE 40 MG TABLET PO SCH (06:46)
[2024-04-25] MEDS ORDERED: iohexoL-300 100 ML VIAL ONE (06:58)
[2024-04-25] MEDS ORDERED: DIATRIZOATE MEGLU/DIATRIZO SOD 30 ML BOTTLE PO ONE (07:02)
[2024-04-25] MEDS: DIATRIZOATE MEGLU/DIATRIZO SOD 30 ML BOTTLE PO ONE (08:49)
[2024-04-25] MEDS: iohexoL-300 100 ML VIAL IVP ONE (08:49)
[2024-04-25] MEDS: cefTRIAXone 2 GM in SODIUM CHLORIDE 0.9% MINIBAG 100 ML IV SCH (09:29)
[2024-04-25] MEDS ORDERED: SEVOFLURANE 250 ML LIQUID INH ONE (10:21)
[2024-04-25] MEDS ORDERED: fentaNYL 100 MCG/2 ML VIAL ONE ×3 (10:26→15:35)
[2024-04-25] MEDS ORDERED: MIDAZOLAM 2 MG/2 ML VIAL ONE (10:26)
[2024-04-25] MEDS ORDERED: LIDOCAINE-PF 2% 10 ML AMP SUBQ ONE (10:27)
[2024-04-25] MEDS ORDERED: PROPOFOL 200 MG/20 ML VIAL IVP ONE (10:27)
[2024-04-25] MEDS ORDERED: ROCURONIUM 50 MG/5 ML VIAL ONE (10:27)
[2024-04-25] MEDS ORDERED: LIDOCAINE 1%-EPI 1:100000 20 ML MDV ONE (10:42)
[2024-04-25] MEDS ORDERED: BUPIVACAINE 0.5% PF 10 ML VIAL ONE (10:42)
[2024-04-25] MEDS ORDERED: METOCLOPRAMIDE 10 MG/2 ML VIAL IVP PRN (10:47)
[2024-04-25] MEDS ORDERED: ATROPINE ABBOJECT 1 MG/10 ML SYRINGE IVP PRN (10:47)
[2024-04-25] MEDS ORDERED: HYDROmorphone 0.5 MG/0.5 ML SYRINGE IVP PRN (10:47)
[2024-04-25] MEDS ORDERED: ePHEDrine 50 MG/ML VIAL IVP PRN (10:47)
[2024-04-25] MEDS ORDERED: NALOXONE 0.4 MG/ML VIAL IVP PRN (10:47)
[2024-04-25] MEDS ORDERED: ONDANSETRON 4 MG/2 ML VIAL IVP PRN (10:47)
[2024-04-25] MEDS ORDERED: MORPHINE 2 MG/ML CARPUJECT IVP PRN (10:47)
--- NOTE | 2024-04-25 10:47 | ANESTHESIA PROCEDURE NOTE ---
Pre-Anesthesia VS, & Labs Diagnosis Surgical Diagnosis:: intra-abdominal abcess Procedure Procedure: I&D, abdominal wound exploration Vitals Vital Signs: Temp Pulse Resp BP Pulse Ox O2 Flow Rate 37.2 C 86 20 100/57 L 96 0 04/25/24 10:39 04/25/24 10:39 04/25/24 10:39 04/25/24 10:39 04/25/24 08:00 04/24/24 12:00 NPO NPO: Other Last Food Intake: 0800 Lab Results Current Lab Results: Laboratory Tests 04/25/24 05:25: WBC 17.5 H, RBC 3.92 L, Hgb 11.9 L, Hct 35.3 L, MCV 90.1, MCH 30.4, MCHC 33.7, RDW 12.9, Plt Count 305, MPV 8.9, Neut # (Auto) 15.4 H, Lymph # (Auto) 1.4 L, Treasure # (Auto) 0.4, Eos # (Auto) 0.1, Baso # (Auto) 0.1, Absolute Nucleated RBC 0.00, Nucleated RBC % 0.0, Sodium 138, Potassium 4.0, Chloride 105, Carbon Dioxide 27, Anion Gap 6.0, BUN 13, Creatinine 1.0, Estimated GFR (MDRD) 88 L, Glucose 105 H, Calcium 8.2 L 04/24/24 05:47: WBC 13.9 H, RBC 4.34 L, Hgb 12.9 L, Hct 39.4 L, MCV 90.8, MCH 29.7, MCHC 32.7, RDW 12.8, Plt Count 372, MPV 8.6, Neut # (Auto) 11.3 H, Lymph # (Auto) 1.5, Treasure # (Auto) 0.9, Eos # (Auto) 0.0, Baso # (Auto) 0.0, Absolute Nucleated RBC 0.00, Nucleated RBC % 0.0, Sodium 135, Potassium 4.3, Chloride 102, Carbon Dioxide 25, Anion Gap 8.0, BUN 22 H, Creatinine 1.0, Estimated GFR (MDRD) 88 L, Glucose 111 H, Calcium 8.6 04/23/24 05:30: WBC 11.8 H, RBC 4.28 L, Hgb 12.6 L, Hct 38.4 L, MCV 89.7, MCH 29.4, MCHC 32.8, RDW 12.8, Plt Count 361, MPV 8.5, Neut # (Auto) 9.7 H, Lymph # (Auto) 1.1 L, Treasure # (Auto) 0.8, Eos # (Auto) 0.1, Baso # (Auto) 0.0, Absolute Nucleated RBC 0.00, Nucleated RBC % 0.0, Sodium 135, Potassium 3.7, Chloride 101, Carbon Dioxide 27, Anion Gap 7.0, BUN 17, Creatinine 1.0, Estimated GFR (MDRD) 88 L, Glucose 110 H, Calcium 8.4 L 04/22/24 13:19: WBC 21.2 H, RBC 4.65 L, Hgb 13.9 L, Hct 42.2, MCV 90.8, MCH 29.9, MCHC 32.9, RDW 12.9, Plt Count 404, MPV 8.5, Neut # (Auto) Not Reportable, Lymph # (Auto) Not Reportable, Treasure # (Auto) Not Reportable, Eos # (Auto) Not Reportable, Baso # (Auto) Not Reportable, Absolute Nucleated RBC Not Reportable, Total Counted 100, Band Neuts % (Manual) 13 H, Abnorm Lymph % (Manual) 0, Nucleated RBC % Not Reportable, Neutrophils # (Manual) 18.2 H, Lymphocytes # (Manual) 1.3 L, Monocytes # (Manual) 1.7 H, Eosinophils # (Manual) 0.0, Basophils # (Manual) 0.0, Differential Comment MANUAL DIFFERENTIAL, Manual Slide Review Indicated, WBC Morphology 2+ TOXIC GRANULATION, Platelet Estimate NORMAL (130-450,000), Platelet Morphology NORMAL APPEARANCE, RBC Morph Micro Appear NORMAL APPEARANCE, Sodium 134 L, Potassium 4.2, Chloride 96 L, Carbon Dioxide 30, Anion Gap 8.0, BUN 22 H, Creatinine 1.3, Estimated GFR (MDRD) 65 L, Glucose 117 H, Calcium 9.6, Total Bilirubin 0.5, AST 67 H, ALT 153 H, Alkaline Phosphatase 128 H, Total Protein 8.4, Albumin 3.8, Globulin 4.6 H, A lbumin/Globulin Ratio 0.8 L, Lipase 15 04/25/24 05:25 04/25/24 05:25 Meds/Allgy Home Medications Ambulatory Orders Medication Instructions Recorded Confirmed ibuprofen 200 mg capsule 200 mg PO Q8H 04/22/24 04/22/24 Allergies Allergies Allergy/AdvReac Type Severity Reaction Status Date / Time No Known Drug Allergies Allergy Verified 04/22/24 12:43 [facility] Medical History Medical History (Updated 04/24/24 @ 16:42 by Willy Ramirez MD) No pertinent past medical history Surgical History Surgical History (Updated 04/22/24 @ 16:52 by Tracey Saini, RN) History of appendectomy Social History Social History (Updated 04/22/24 @ 16:52 by Tracey Saini, MARTINA) Smoking Status: Never smoker Do you vape?: No Relationship: Do you feel safe in your home environment?: Yes Suffered physical, verbal, emotional, or financial abuse?: No POLST Patient has POLST: No POLST Status: Full Code Anesthesia Exam (Expanded) Exam General: Alert, Oriented x3 and Cooperative Dental: WNL Mouth Openin Fingerbreadth Mallampati classification: I Thyromental Distance: 4-6 cm Respiratory: Lungs clear Cardiovascular: Regular rate Plan Problem List (1) Abscess, intra-abdominal, postoperative: Plan: 1) [facility] with plan for [facility] stay 2) I&D of RLQ abscess through a lateral flank incision under GETA 3) IV Zosyn while an inpatient followed by oral antibiotics for 7-10 days Consent: [facility] has been counseled for the procedure, it's indications, risks, benefits and expected outcome as well as alternative therapies. We specifically discussed risks associated with anesthesia, bleeding, infection, injury to surrounding structures which may require additional surgery, and the possible need for conversion to an open procedure. We also discussed the unlikely need for a blood transfusion with its risks and benefits. [place] understands, agrees, and consents to the proposed operative strategy and requests that we proceed with the procedure as outlined in our discussion. Willy Ramirez MD, FACS General Surgery Service Plan Anesthesia Type: General Consent for Procedure(s) Verified and Reviewed: Yes Code Status: Attempt Resuscitation ASA Classification ASA classification: 1-Healthy patient Is this case an emergency?: Yes
--- NOTE | 2024-04-25 11:02 | CT Report ---
PROCEDURE: CT Abdomen/Pelvis W INDICATIONS: S/P I D RLQ abscess - continued infection suspected CONTRAST: OMNI 300 100ML TECHNIQUE: After the administration of intravenous contrast, a CT scan of the abdomen and pelvis was performed. Images were recorded and evaluated at appropriate window settings. Reformats: coronal and sagittal. F or radiation dose reduction, the following was used: automated exposure control, adjustment of mA and /or kV according to patient size. COMPARISON: CT abdomen and pelvis 04/22/2024. FINDINGS: Image quality: Diagnostic. Lower chest: Trace pleural effusions. Dependent opacity which has the appearance of atelectasis. Liver: Small hypodensity in the inferior right liver, (2/53), unchanged in size. Gallbladder: Within normal limits in size. Trace pericholecystic fluid. No calcified gallstones. Biliary tree: No intrahepatic or extrahepatic dilation, accounting for age. Spleen: No splenomegaly. Pancreas: No pancreatic ductal dilation. Adrenals: No adrenal nodule. Kidneys and ureters: No hydronephrosis. No renal cystic lesion which requires follow up. No solid mas s. Stomach, bowel and peritoneum: Rectal tube. Contrast in the colon. Suture material at the cecum. No s mall bowel obstruction. There is oral contrast in the small bowel. The stomach is decompressed. There is a collection in the right lateral abdomen measuring 8.6 x 3.7 x 3.6 cm, ( and ), est imated volume of 60 cc. The collection is not felt to be significantly changed. There is heterogeneou s stool contents within the collection. This appears to communicate with the cecum, (). There is peripheral enhancement. There is a right surgical drain within the collection with the tip under the liver. Skin staple line. There is subcutaneous and intra-rectus gas at the right flank. There is a small lynn unt of high density material at the right flank deep to the staple line. Trace mesenteric edema and fluid tracking into the pelvis. Small amount of gas under the right hemidi aphragm. Lymph nodes: No central or retroperitoneal adenopathy. Vessels: No infrarenal aortic aneurysm. Patent portal vein. PELVIS Reproductive organs: Unremarkable. Bladder: No abnormal wall thickening, accounting for underdistention. Pelvic lymph nodes: No pelvic adenopathy by size criteria. Bones: No aggressive osseous abnormality. Other: No significant ventral or inguinal hernia. IMPRESSION: 1. Collection in the right lateral abdomen measuring approximately 8.6 cm and approximately 60 cc. No t significantly changed in size. The collection contains fecal matter. There is now a surgical drain within the collection. 2. There is now scant amount of free air under the right hemidiaphragm likely iatrogenic. 3. Hypodense focus in the inferior right liver is indeterminate. Difficult to exclude small liver abs cess. 4. Right lateral body wall edema and subcutaneous emphysema. Possible small hematoma deep to the skin stable line. 5. Small bilateral pleural effusions. Reviewed by: Parish Milligan MD on 04/25/2024 11:00 AM PST Approved by: Parish Milligan MD on 04/25/2024 11:00 AM PST Station ID: [id number]
[2024-04-25] MEDS ORDERED: VASOPRESSIN 20 UNIT/ML VIAL ONE (11:30)
[2024-04-25] MEDS ORDERED: PHENYLEPHRINE HCL 0.5 MG/5 ML AMPULE ONE (11:33)
[2024-04-25] MEDS ORDERED: BUPIVACAINE 0.25% PF 10 ML VIAL ONE (11:33)
[2024-04-25] MEDS ORDERED: metroNIDAZOLE 500 MG/100 ML 500 MG/100 ML BAG ONE (11:41)
[2024-04-25] MEDS ORDERED: ACETAMINOPHEN 1,000 MG/100 ML 1,000 MG/100 ML BAG IV ONE (12:22)
[2024-04-25] MEDS ORDERED: HYDROmorphone 1 MG/ML CARPUJECT ONE (12:38)
[2024-04-25] MEDS ORDERED: SUGAMMADEX 200 MG/2 ML VIAL IVP ONE (13:57)
[2024-04-25] MEDS ORDERED: ONDANSETRON 4 MG/2 ML VIAL ONE (14:16)
[2024-04-25] MEDS: LACTATED RINGERS 1,000 ML IV SCH (14:29)
[2024-04-25] MEDS: fentaNYL 100 MCG/2 ML VIAL IVP PRN (14:35)
[2024-04-25] MEDS: PHENYLEPHRINE 20 MG in SODIUM CHLORIDE 0.9% 248 ML IV ONE (14:49)
--- NOTE | 2024-04-25 14:50 | OPERATIVE REPORT ---
Operative Report General Admit Date: 04/24/24 Procedure Data: Operation Date: 04/25/24 11:00 Proposed Procedures p Abdominal wall wound washout, possible exploratory laparotomy, possible bowel resection - Samia Wei DO Actual Procedures p (1) Exploratory laparotomy (2) right colectomy (3) Abdominal wall wound washout - Samia Wei DO Pre-Op Diagnosis: MANAGEMENT OF RETROPERITONEAL ABSCESS Anesthesia Type General Case Staff Anesthesia Provider: Pam Flores Anesthesia Provider: Vonda Jimenez Assisting Provider: Joesph Hoyt Case Times Into Recovery: 04/25/24 14:29 Procedure Start: 04/25/24 11:42 Procedure End: 04/25/24 14:15 Time out: 04/25/24 11:40 Pre-Op Diagnosis: Retroperitoneal abscess s/p laparoscopic appendectomy Post Op Diagnosis: (1) Feculant retroperitonitis (2) Enterotomy (3) Perforated Cecum Procedure Note Intake, IV Amount (ml): 1,700 Estimated Blood Loss (ml): 75 Output, Urine Amount (ml): 700 Drain/Tube Type: Babatunde drain (x2. ) Pathology: Right colon Indications: 28yoM [place], admitted to [facility] on 04/22/24 with retroperitoneal abscess, taken to OR on 04/23 for incision and drainage of abscess via RLQ Rukhsana Kei incision. Subsequently his WBC steadily alisia again, his pain did not improve, and repeat CT scan showed persistent large retroperitoneal collection (despite drain in place) with suggestion of bowel communication. Findings: Ryan stool within the retroperitoneal right colic gutter. A cecal perforation and an enterotomy within the terminal ileum were contributing stool to the walled off abscess cavity along the right retroperitoneum. Right colectomy was completed for source control. A primary anastomosis was made. The right abdominal wall had feculant and puruelnt material within all muscle planes - the was opened and irrigated through the rukhsana kei incision. Two drains 19F round babatunde drains were placed: - the anterior drain enters the retroperitoneal space - the posterior drain lies within the abdominal wall muscle layers CLASS IV CASE - feculant contamination present at the start of the operation Complications: None Other Other Information/Narrative: Patient was brought to the operating room placed supine on the operating room table where general anesthesia was induced by the anesthesia service. A Platt catheter was placed. The Rukhsana-Kei incision sherin were removed and there was immediate release of purulent brown fluid from the subcutaneous space with a foul feculent odor. The abdomen was then prepped and draped in standard sterile fashion. A final timeout was performed with all members of the team being in agreement. A vertical midline incision was made sharply, subcutaneous tissues were divided with Bovie electrocautery, and the peritoneum was entered sharply. The fascia was then extended with Bovie electrocautery. An Ad retractor was placed into the midline laparotomy. Upon entering the abdomen there was no free fluid purulence or feculence identified. The right colon was adherent to the right lateral abdominal wall and it was bluntly taken down. Upon taking the right colon down ryan stool was encountered into the in the retroperitoneal space. The stool was suctioned and the colon was examined, identifying a perforation in the lateral aspect of the cecum that was contributing stool into the walled off abscess cavity. The perforation diameter was approximately 1.5 cm. The remainder of the terminal ileum and the right colon were inspected, and an enterotomy measuring 5 mm across was identified in the terminal ileum approximately 10 cm proximal to the ileocecal valve. Decision was made to perform a right colectomy for source control. All bowel examined was viable. The right colon was mobilized from its adhesions along the right side of the abdomen; what remained of the white line of Toldt was divided. The hepatic flexure was mobilized, it was adherent to the liver the gallbladder the underlying renal capsule as well as the duodenum. Careful blunt and sharp dissection were used to elevate the hepatic flexure away from the surrounding structures. The gastrocolic ligament was entered at the proximal portion of the transverse colon and divided freeing up the proximal transverse colon back to the hepatic flexure. The transverse colon was divided with a 75 mm blue load stapler proximal to the middle colic vessels. The terminal ileum was divided with a 55 mm blue load stapler proximal to the identified enterotomy. The LigaSure was used to divide the mesentery and complete the resection of the right colon. The terminal ileum and the transverse colon were aligned in a [id number] manner, and a common channel was created with a 75 mm blue load stapler. The common enterotomy was closed with a running 3-0 Vicryl, followed by 3-0 silk Lembert sutures. Before closing the enterotomy, ring forceps were used to inspect the staple line and no bleeding was observed. The anastomosis was palpated and noted to be widely patent. The mesenteric defect was left widely open. The abscess cavity within the right abdomen and retroperitoneum, along with the Rukhsana-Kei incision and layers of the abdominal wall that had collected purulent material were copiously irrigated with 9 L of warm normal saline. The tissues within the abdominal wall were noted to be viable and not necrotic. 219 Chinese round Babatunde drains were brought through stab separate stab incisions: 1 positioned anteriorly traversed into the retroperitoneum; 1 positioned posteriorly traversed within the abdominal wall muscular layers. The drains were secured with 3-0 nylon suture. The midline fascia was closed with 0 PDS running suture x 2. The subcutaneous tissues were irrigated and local anesthetic was injected. The skin at the midline incision as well as the Rukhsana-Kei incision was closed loosely with sherin. Sterile dressings were applied. An NG tube had been positioned and confirmed manually to be within the stomach prior to closing. All sponge and needle counts were correct. There were no complications. The Platt catheter was left in place. The patient transferred to the PACU in good condition. Samia Wei DO, [facility] General Surgeon, Barbara
[2024-04-25] MEDS: metroNIDAZOLE 500 MG/100 ML 500 MG/100 ML BAG IV SCH ×2 (15:15→20:59)
[2024-04-25] MEDS ORDERED: PHENOL THROAT SPRAY 177 ML MM PRN (16:25)
[2024-04-25] MEDS: KETOROLAC 15 MG/ML VIAL IVP SCH (17:23)
[2024-04-25] MEDS: ACETAMINOPHEN 1,000 MG/100 ML 1,000 MG/100 ML BAG IV SCH (18:37)
--- NOTE | 2024-04-25 22:32 | ANESTHESIA POST OP EVALUATION ---
Anesthesia Post Eval Post Anesthesia Eval Vitals: Last Vital Signs Temp 36 C L 04/25/24 16:42 Pulse 77 04/25/24 18:51 Resp 16 04/25/24 18:51 BP 98/48 L 04/25/24 18:51 Pulse Ox 96 04/25/24 18:51 O2 Flow Rate 1.5 04/25/24 16:42 CV Function Including HR & BP: Stable Pain Control: Satisfactory Nausea & Vomiting: Negative Mental Status: Baseline Respiratory Status: Airway Patent Hydration Status: Satisfactory Anesthesia Complications: None
[2024-04-26 05:20] LABS: BASOPHILS # (AUTO) 0.1 10^3/uL (0.0-0.1); BASOPHILS % (AUTO) 0.3 %; EOSINOPHILS % (AUTO) 0.3 %; HCT - HEMATOCRIT 33.4 % (42.0-52.0); HGB - HEMOGLOBIN 11.2 g/dL (14.0-18.0); LYMPHOCYTES # (AUTO) 1.1 10^3/uL (1.5-3.5); LYMPHOCYTES % (AUTO) 7.6 %; MEAN CORPUSCULAR HEMOGLOBIN 30.3 pg (27.0-31.0); MEAN CORPUSCULAR HGB CONC 33.5 g/dL (32.0-36.0); MEAN CORPUSCULAR VOLUME 90.3 fL (80.0-94.0); MEAN PLATELET VOLUME 8.7 fL (7.4-11.4); MONOCYTES # (AUTO) 0.3 10^3/uL (0.0-1.0); MONOCYTES % (AUTO) 2.1 %; NEUTROPHILS # (AUTO) 12.7 10^3/uL (1.5-6.6); PLT - PLATELET COUNT 325 10^3/uL (130-450); RED CELL DISTRIBUTION WIDTH 13.1 % (12.0-15.0); WHITE BLOOD COUNT 14.3 x10^3/uL (4.8-10.8)
[2024-04-26 05:38] LABS: CALCIUM 8.1 mg/dL (8.5-10.3); CREATININE 0.9 mg/dL (0.6-1.3); MAGNESIUM 1.9 mg/dL (1.7-2.3); POTASSIUM 4.4 mmol/L (3.5-4.5)
[2024-04-26] MEDS: metroNIDAZOLE 500 MG/100 ML 500 MG/100 ML BAG IV SCH (05:45)
--- NOTE | 2024-04-26 14:45 | PROVIDER PROGRESS NOTE ---
Subjective Subjective Pt reports feeling: Improved Current Medications Current Medications Current Medications: Current Medications Generic Name Dose Route Start Last Admin Trade Name Freq PRN Reason Stop Dose Admin Hydromorphone HCl 0.5 mg 04/24/24 07:00 04/26/24 05:17 Hydromorphone 0.5 Mg/0.5 Ml Syringe IVP 0.5 mg Q2H PRN Administration Severe Pain (Level 7-10) Lactated Ringer's 1,000 mls @ 125 mls/hr 04/23/24 16:43 04/26/24 08:00 Lr IV 100 mls/hr .Q8H AURE Administration Ceftriaxone Sodium 2 gm/ 100 mls @ 200 mls/hr 04/25/24 09:00 04/26/24 14:36 Sodium Chloride IV Infused DAILY AURE Infusion Acetaminophen 1,000 mg in 100 mls @ 400 mls/hr 04/25/24 18:00 04/26/24 14:36 Acetaminophen IV Infused Q6HR AURE Infusion Metronidazole 500 mg in 100 mls @ 100 mls/hr 04/26/24 06:30 04/26/24 14:34 Flagyl 500 Mg/100 Ml IV 100 mls/hr Q8H AURE Administration Sodium Chloride 1,000 mls @ 250 mls/hr 04/26/24 14:38 Normal Saline 0.9% IV 04/26/24 18:37 ONCE ONE Ketorolac Tromethamine 15 mg 04/25/24 16:25 04/26/24 11:32 Ketorolac 15 Mg/Ml Vial IVP 04/30/24 16:24 15 mg Q6H AURE Administration Ondansetron HCl 4 mg 04/22/24 19:47 04/24/24 23:50 Ondansetron 4 Mg/2 Ml Vial IVP 4 mg Q6HR PRN Administration Nausea / Vomiting Phenol/Menthol 1 sprays 04/25/24 16:25 Phenol Throat [place] 177 Ml MM Q2HR PRN Throat Pain Sodium Chloride 10 ml 04/23/24 16:43 Sodium Chloride Flush 0.9% 10 Ml Syringe IVP PRN PRN NEEDED PER PROVIDER ORDERS Sodium Chloride 10 ml 04/23/24 16:43 04/26/24 10:39 Sodium Chloride Flush 0.9% 10 Ml Syringe IVP Not Given 0100,0900,1700 [facility] Objective Vital Signs/Intake & Output Reviewed Vital Signs: Yes Vital Signs: Vital Signs x48h Temp Pulse Resp BP Pulse Ox 04/26/24 13:00 36.7 C 73 18 105/53 L 97 04/26/24 08:11 36.7 C 67 18 96/54 L 97 Intake & Output: Intake & Output 04/23/24 04/24/24 04/25/24 04/26/24 23:59 23:59 23:59 23:59 Intake Total 2400 / 2400 4052 / 4052 4128 / 4128 1200 / 1200 Output Total 46 / 46 101 / 101 2097 / 2097 1380 / 1380 Balance 2354 / 2354 3951 / 3951 203 / 2030 -180 / -180 Objective General Appearance: positive No acute distress and Alert Eyes Bilateral: positive Normal inspection, PERRL and No scleral icterus Respiratory: positive No respiratory distress Abdomen: positive Other (dressings c/d/i. jps minimal) Neurologic/Psychiatric: positive Oriented x3 Lab Results 04/26/24 05:00 04/26/24 05:00 Other Labs: Lab Results x24hrs 04/26/24 Range/Units 05:00 WBC 14.3 H (4.8-10.8) x10^3/uL RBC 3.70 L (4.70-6.10) 10^6/uL Hgb 11.2 L (14.0-18.0) g/dL Hct 33.4 L (42.0-52.0) % MCV 90.3 (80.0-94.0) fL MCH 30.3 (27.0-31.0) pg MCHC 33.5 (32.0-36.0) g/dL RDW 13.1 (12.0-15.0) % Plt Count 325 (130-450) 10^3/uL MPV 8.7 (7.4-11.4) fL Neut # (Auto) 12.7 H (1.5-6.6) 10^3/uL Lymph # (Auto) 1.1 L (1.5-3.5) 10^3/uL [place] # (Auto) 0.3 (0.0-1.0) 10^3/uL Eos # (Auto) 0.0 (0.0-0.7) 10^3/uL Baso # (Auto) 0.1 (0.0-0.1) 10^3/uL Absolute Nucleated RBC 0.00 x10^3/uL Nucleated RBC % 0.0 /100WBC Sodium 137 (135-145) mmol/L Potassium 4.4 (3.5-4.5) mmol/L Chloride 103 (101-111) mmol/L Carbon Dioxide 29 (21-32) mmol/L Anion Gap 5.0 L (6-13) BUN 16 (6-20) mg/dL Creatinine 0.9 (0.6-1.3) mg/dL Estimated GFR (MDRD) 100 (>89) Glucose 128 H (74-104) mg/dL Calcium 8.1 L (8.5-10.3) mg/dL Phosphorus 4.0 (2.5-5.0) mg/dL Magnesium 1.9 (1.7-2.3) mg/dL Assessment/Plan Problem List (1) Abscess, intra-abdominal, postoperative: Impression: improved after surgery yesterday. ileus and feels dehydrated. plan ivf bolus. does not want miller out today. plan miller out tomorrow. continue ngt and current care otherwise.
[2024-04-26] MEDS: SODIUM CHLORIDE 0.9% 1,000 ML IV ONE (16:05)
[2024-04-27] MEDS: ACETAMINOPHEN 1,000 MG/100 ML 1,000 MG/100 ML BAG IV SCH (02:03)
[2024-04-27] MEDS: SODIUM CHLORIDE FLUSH 0.9% 10 ML SYRINGE IVP PRN (02:05)
[2024-04-27 05:11] LABS: BASOPHILS % (AUTO) 0.3 %; EOSINOPHILS # (AUTO) 0.2 10^3/uL (0.0-0.7); EOSINOPHILS % (AUTO) 1.3 %; HGB - HEMOGLOBIN 10.2 g/dL (14.0-18.0); LYMPHOCYTES # (AUTO) 1.3 10^3/uL (1.5-3.5); LYMPHOCYTES % (AUTO) 9.5 %; MEAN CORPUSCULAR HEMOGLOBIN 30.4 pg (27.0-31.0); MEAN CORPUSCULAR VOLUME 89.3 fL (80.0-94.0); MEAN PLATELET VOLUME 8.7 fL (7.4-11.4); MONOCYTES # (AUTO) 0.4 10^3/uL (0.0-1.0); MONOCYTES % (AUTO) 3.2 %; NEUTROPHILS # (AUTO) 11.4 10^3/uL (1.5-6.6); NEUTROPHILS % (AUTO) 84.1 %; PLT - PLATELET COUNT 321 10^3/uL (130-450); RED BLOOD COUNT 3.36 10^6/uL (4.70-6.10); RED CELL DISTRIBUTION WIDTH 13.1 % (12.0-15.0); WHITE BLOOD COUNT 13.5 x10^3/uL (4.8-10.8)
[2024-04-27 05:28] LABS: CALCIUM 7.9 mg/dL (8.5-10.3); CREATININE 0.9 mg/dL (0.6-1.3); MAGNESIUM 1.9 mg/dL (1.7-2.3); PHOSPHORUS 3.8 mg/dL (2.5-5.0); POTASSIUM 4.1 mmol/L (3.5-4.5)
[2024-04-27] MEDS: CEFEPIME 2 GM VIAL IVP SCH (09:39)
--- NOTE | 2024-04-27 10:22 | PROVIDER PROGRESS NOTE ---
Subjective General Admit Date: 04/24/24 Procedure Date: 04/25/24 Post Op Days: 2 Procedure Performed: Ex Lap, right colectomy, abdominal wall washout Other Other Information/Narrative: POD2 s/p return to OR for exlap/right colectomy/abdominal wall wound washout. Yesterday got 1L bolus when feeling thirsty. HD normal, AF, 1L UOP, creatinine 1.0 --> 0.9. NGT in place with 900cc light gastric fluid; abdomen is nondistended and he is starting to pass flatus. Denies Nausea. Not yet hungry. Used prn dilaudid x1 in addition to tiffany ofirmev/toradol. Wound cx from 04/23 OR returned as e coli x2 strands and klebsiella with mixed sensitivities. Review of Systems Status of ROS: 10 or more systems reviewed and unremarkable except as noted in history and below Exam Constitutional normal general appearance and no apparent distress laying in bed HENMT normocephalic Respiratory normal respiratory effort Cardiovascular normal heart rate noted Gastrointestinal soft, nondistended. Dressing removed from midline and rukhsana andres incisions. both incisions are intact with sherin in place and no drainage between sherin. There is no fluid accumulation beneath. The rukhsana andres incision has surrounding cellulitis that is quite tender, but no expressible fluid. Two SHAMAR drains - anterior/left drain (peritoneal) is serous with 70cc (from 85); the p osterior/right one is in the subQ and seropurulent with 195cc (from 60cc). Genitourinary clear yellow urine Extremities normal to inspection Psychiatry oriented x3 Skin skin color normal ABX Reporting Has patient been on IV antibiotics over the past 48 hours?: Yes Impression/Plan Problem List (1) Abscess, intra-abdominal, postoperative: Plan: 28yoM admitted with retroperitoneal abscess after 04/09/24 lap appy at OSH. - S/p initial I&D of retroperitoneal abscess via rukhsana andres incision on 04/23/24. - S/p return to OR on 04/25/24 for exploratory laparotomy, right colectomy, and abdominal wall wound washout where he was found to have a cecal perforation as well as an enterotomy (within the terminal ileum) communicating with the retroperitoneal abscess. [Retrospective review of admitting CT on 04/22 suggests that these bowel injuries were present on admission but not recognized on the CT prospectively.] - Wound cultures from 04/23 resulted E coli x2 strands and Klebsiella with varied sensitivities - changed from Rocephin/Flagyl to Cefepime on 04/27 to cover all microbes. WBC is downtrending from second surgery (17 to 14 to 13). Ileus seems to be slowly resolving with early passage of Flatus and no nausea, but no appetite yet. If the cellulitis around the rukhsana andres incision does not improve with abx transition, may need to consider partially opening that incision tomorrow for adequate source control. Plan: - Continue scheduled IV tyl/toradol with prn IV dilaudid for breakthrough pain - Remove NGT but continue NPO until more robust ROBF. Very limited ice chips OK - Continue IVF - Remove miller - DTV in 6 hrs - continue SHAMAR drains x2 (left/anterior is intraperitoneal; right/posterior is in the subq space) - Cefepime BID for intraabdominal infection - daily CBC/BMP - start ppx lovenox today (hgb stable since surgery) - needs to ambulate TID, continue IS and SCDs - transition to inpatient status Samia Wei DO, FACS General Surgeon, [facility]
[2024-04-27] MEDS: ENOXAPARIN 40 MG/0.4 ML SYRINGE SUBQ SCH (12:06)
[2024-04-28 05:59] LABS: BASOPHILS % (AUTO) 0.3 %; EOSINOPHILS # (AUTO) 0.2 10^3/uL (0.0-0.7); EOSINOPHILS % (AUTO) 1.6 %; HCT - HEMATOCRIT 31.9 % (42.0-52.0); HGB - HEMOGLOBIN 10.6 g/dL (14.0-18.0); LYMPHOCYTES # (AUTO) 1.2 10^3/uL (1.5-3.5); LYMPHOCYTES % (AUTO) 9.9 %; MEAN CORPUSCULAR HEMOGLOBIN 30.2 pg (27.0-31.0); MEAN CORPUSCULAR HGB CONC 33.2 g/dL (32.0-36.0); MEAN CORPUSCULAR VOLUME 90.9 fL (80.0-94.0); MEAN PLATELET VOLUME 8.5 fL (7.4-11.4); MONOCYTES # (AUTO) 0.5 10^3/uL (0.0-1.0); MONOCYTES % (AUTO) 4.3 %; NEUTROPHILS # (AUTO) 9.8 10^3/uL (1.5-6.6); NEUTROPHILS % (AUTO) 81.6 %; PLT - PLATELET COUNT 356 10^3/uL (130-450); RED BLOOD COUNT 3.51 10^6/uL (4.70-6.10); RED CELL DISTRIBUTION WIDTH 13.4 % (12.0-15.0)
[2024-04-28 06:17] LABS: CALCIUM 7.7 mg/dL (8.5-10.3); CREATININE 0.9 mg/dL (0.6-1.3); MAGNESIUM 1.8 mg/dL (1.7-2.3); PHOSPHORUS 3.9 mg/dL (2.5-5.0); POTASSIUM 3.9 mmol/L (3.5-4.5)
--- NOTE | 2024-04-28 07:47 | PROVIDER PROGRESS NOTE ---
Subjective General Admit Date: 04/27/24 Procedure Date: 04/25/24 Post Op Days: 3 Procedure Performed: Ex Lap, right colectomy, abdominal wall washout Other Other Information/Narrative: Pain controlled. No nausea, not hungry but he is thirsty. He states he has not been getting out of bed much during the day. He reports he has felt hot at night, afebrile. +flatus, no BM. No questions or concerns this AM. Exam Exam Gen: no acute distress, alert and oriented CV: RRR Pulm: non labored, on RA Abd: soft, minimal incisional ttp, R lateral incision is slightly erythematous and edematous. No drainage. Ext: 2+ B LE edema Impression/Plan Problem List (1) Abscess, intra-abdominal, postoperative: Problem List Comment Problem List: 28yoM admitted with retroperitoneal abscess after 04/09/24 lap appy at OSH. - S/p initial I&D of retroperitoneal abscess via rukhsana andres incision on 04/23/24. - S/p return to OR on 04/25/24 for exploratory laparotomy, right colectomy, and abdominal wall wound washout where he was found to have a cecal perforation as well as an enterotomy (within the terminal ileum) communicating with the retroperitoneal abscess. [Retrospective review of admitting CT on 04/22 suggests that these bowel injuries were present on admission but not recognized on the CT prospectively.] - Wound cultures from 04/23 resulted E coli x2 strands and Klebsiella with varied sensitivities - changed from Rocephin/Flagyl to Cefepime, flagyl on 04/27 to cover all microbes. WBC is downtrending from second surgery (17 to 14 to 13 to 12). Ileus seems to be slowly resolving with early passage of Flatus and no nausea, but no appetite yet. NG out, tolerating well Plan: - Continue scheduled IV tyl/toradol with prn IV dilaudid for breakthrough pain - Will start CLD today - Continue IVF, decreased rate - miller removed yesterday - continue SHAMAR drains x2 (left/anterior is intraperitoneal; right/posterior is in the subq space). May remove L (intraperitoneal) drain in next day or two when WBC normal. - Cefepime BID for intraabdominal infection for at least 7 days (started 04/27) - daily CBC/BMP - ppx lovenox (hgb stable since surgery) - needs to ambulate TID, continue IS and SCDs. Will order PT/OT today. - patient is inpatient status
--- NOTE | 2024-04-28 15:49 | OT Plan of Care ---
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 S/p initial I&D of retroperitoneal abscess via rukhsana andres incision on 04/23/24. S/p return to OR on 04/25/24 for exploratory laparotomy, right colectomy, and abdominal wall wound washout where he was found to have a cecal perforation as well as an enterotomy (within the terminal ileum) communicating with the retroperitoneal abscess. [Retrospective review of admitting CT on 04/22 suggests t hat these bowel injuries were present on admission but not recognized on the CT prospectively.] Wound cultures from 04/23 resulted E coli x2 strands and Klebsiella with varied sensitivities. WBC is downtrending from second surgery (17 to 14 to 13 to 12). Stable and cleared for Therapy evaluation. Met supine in bed, A&Ox4, follows all commands appropriately. No abdominal binder in place at this time MD ordered for OOB use and comfort. Pt performed supine to sit (log roll) MIN A, sit to stand and SPT bed to chair using IV pole for stability CGA Quick to fatigue, + dizziness. BP 101/50 RN updated. Pt encouraged to perform daily B UE and B LE therex seated in chair, and OOB for meal trials to support functional routine during acute stay. Currently pt is MIN-MOD ADLs. Overall presents with decreased strength, endurance, activity tolerance, and ADL status. Will benefit from cont OT services during acute stay. Rec d/c home pending progress and medical stability. -Activities of Daily Living Improve Upper Extremity Dressing to:: Independent Improve Lower Extremity Dressing to:: Independent Improve Grooming/Hygiene to:: Independent Improve Bathing to:: Independent Improve Toileting to:: Independent OT Inpatient Plan PLAN Treatment Frequency: 1x/day Duration: Until goals are met -Discharge Recommendations Discharge Location: Previous Living Situation Transport Needs at Discharge: Personal vehicle
[2024-04-29 05:43] LABS: BASOPHILS % (AUTO) 0.3 %; EOSINOPHILS # (AUTO) 0.2 10^3/uL (0.0-0.7); HCT - HEMATOCRIT 33.1 % (42.0-52.0); HGB - HEMOGLOBIN 11.1 g/dL (14.0-18.0); LYMPHOCYTES # (AUTO) 1.5 10^3/uL (1.5-3.5); LYMPHOCYTES % (AUTO) 14.5 %; MEAN CORPUSCULAR HEMOGLOBIN 30.1 pg (27.0-31.0); MEAN CORPUSCULAR HGB CONC 33.5 g/dL (32.0-36.0); MEAN CORPUSCULAR VOLUME 89.7 fL (80.0-94.0); MEAN PLATELET VOLUME 8.3 fL (7.4-11.4); MONOCYTES # (AUTO) 0.5 10^3/uL (0.0-1.0); MONOCYTES % (AUTO) 4.8 %; NEUTROPHILS # (AUTO) 7.7 10^3/uL (1.5-6.6); PLT - PLATELET COUNT 371 10^3/uL (130-450); RED BLOOD COUNT 3.69 10^6/uL (4.70-6.10); RED CELL DISTRIBUTION WIDTH 13.1 % (12.0-15.0); WHITE BLOOD COUNT 10.3 x10^3/uL (4.8-10.8)
[2024-04-29 05:58] LABS: CALCIUM 7.5 mg/dL (8.5-10.3); CREATININE 0.8 mg/dL (0.6-1.3); MAGNESIUM 1.9 mg/dL (1.7-2.3); POTASSIUM 3.6 mmol/L (3.5-4.5)
--- NOTE | 2024-04-29 07:05 | PROVIDER PROGRESS NOTE ---
Subjective General Admit Date: 04/27/24 Procedure Date: 04/25/24 Post Op Days: 4 Procedure Performed: Ex Lap, right colectomy, abdominal wall washout Other Other Information/Narrative: Patient felt bloated with clears yesterday morning. He was dizzy when he stood up for the first time after surgery, and did tolerate sitting in the chair for a couple of hours. He also had a bowel movement yesterday afternoon which improved his bloating. He is not feeling hungry yet. Denies pain, fever, nausea this AM. He feels like he was able to sleep better last night. Exam Exam Gen: no acute distress, alert and oriented CV: RRR Pulm: non labored, on RA Abd: soft, minimal incisional ttp, R lateral incision is slightly erythematous and edematous. No drainage. L SHAMAR with 17mL serous fluid out in last 24 hours, R with 35mL serous fluid in last 24 hours. Ext: 2+ B LE edema ABX Reporting Has patient been on IV antibiotics over the past 48 hours?: Yes Impression/Plan Problem List (1) Abscess, intra-abdominal, postoperative: Problem List Comment Problem List: 28yoM admitted with retroperitoneal abscess after 04/09/24 lap appy at OSH. - S/p initial I&D of retroperitoneal abscess via rukhsana andres incision on 04/23/24. - S/p return to OR on 04/25/24 for exploratory laparotomy, right colectomy, and abdominal wall wound washout where he was found to have a cecal perforation as well as an enterotomy (within the terminal ileum) communicating with the retroperitoneal abscess. [Retrospective review of admitting CT on 04/22 suggests that these bowel injuries were present on admission but not recognized on the CT prospectively.] - Wound cultures from 04/23 resulted E coli x2 strands and Klebsiella with varied sensitivities - changed from Rocephin/Flagyl to Cefepime, flagyl on 04/27 to cover all microbes, flagyl transitioned to PO today (04/29). WBC is now wnl for the first time since his presentation (17 to 14 to 13 to 12 to 10). Ileus seems to be slowly resolving with +flatus/+BM, no nausea, but no appetite yet. NG out, tolerating clears in small amounts. Patient does not want to advance diet yet. He has some high protein options. If he continues to do well today, plan to advance to soft/regular diet tomorrow. Plan: - Continue scheduled IV tylenol/toradol with prn IV dilaudid for breakthrough pain - Continue IVF, decreased rate, likely SLIV tomorrow - miller removed, voiding well, encouraged patient to get up to restroom over using urinal in bed - continue SHAMAR drains x2 (left/anterior is intraperitoneal; right/posterior is in the subq space). May remove L (intraperitoneal) drain in next day or two when WBC normal. - Cefepime and flagyl for intraabdominal infection for at least 7 days (started 04/27), flagyl transitioned to PO 04/29 - daily CBC/BMP - ppx lovenox (hgb stable since surgery) - encouraged patient to ambulate TID, continue IS and SCDs. PT/OT following. - patient is inpatient status
[2024-04-29] MEDS: metroNIDAZOLE 250 MG TABLET PO SCH (08:53)
--- NOTE | 2024-04-29 13:20 | PT Plan of Care ---
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 Pt is a ABSMaterials and is fully indep at baseline. Upon PT eval, pt reports moderate abdominal pain, wearing abd binder and sitting in b/s chair. Hypotensive but not orthostatic and denies dizziness. Mild nausea. Able to transfer and amb with SBA to CGA overall. Gait pattern with significant slowed marlene and reduced toe clearance. While pt is able to amb up to 100' without AD, he is far below baseline and will benefit from continued PT in acute setting to improve endurance and gait pattern. When medically clear, anticipate he will dc home without continued rehab need. GOALS Improve supine to sit to:: Independent Improve sit to stand to:: Independent Improve pivot transfer ability to:: Independent Improve sit to supine to:: Independent Improve gait ability to:: Ind Advance Assistive Device to:: None Increase distance walked to (in feet):: 500 PLAN Frequency: 1-2x/day Duration: Until goals are met DISCHARGE RECOMMENDATIONS Discharge Location: Previous Living Situation Support/Services Needed: With assist Other Discharge Equipment: none anticipated Transport Needs at Discharge: Personal vehicle
[2024-04-30 05:02] LABS: BASOPHILS % (AUTO) 0.3 %; EOSINOPHILS # (AUTO) 0.3 10^3/uL (0.0-0.7); EOSINOPHILS % (AUTO) 2.4 %; HCT - HEMATOCRIT 32.2 % (42.0-52.0); HGB - HEMOGLOBIN 10.7 g/dL (14.0-18.0); LYMPHOCYTES # (AUTO) 1.7 10^3/uL (1.5-3.5); LYMPHOCYTES % (AUTO) 15.3 %; MEAN CORPUSCULAR HEMOGLOBIN 29.9 pg (27.0-31.0); MEAN CORPUSCULAR HGB CONC 33.2 g/dL (32.0-36.0); MEAN CORPUSCULAR VOLUME 89.9 fL (80.0-94.0); MEAN PLATELET VOLUME 8.3 fL (7.4-11.4); MONOCYTES # (AUTO) 0.6 10^3/uL (0.0-1.0); MONOCYTES % (AUTO) 5.3 %; NEUTROPHILS % (AUTO) 73.1 %; PLT - PLATELET COUNT 394 10^3/uL (130-450); RED BLOOD COUNT 3.58 10^6/uL (4.70-6.10); RED CELL DISTRIBUTION WIDTH 13.1 % (12.0-15.0)
[2024-04-30 05:17] LABS: CALCIUM 7.5 mg/dL (8.5-10.3); CREATININE 0.8 mg/dL (0.6-1.3); MAGNESIUM 1.9 mg/dL (1.7-2.3); PHOSPHORUS 2.8 mg/dL (2.5-5.0); POTASSIUM 3.7 mmol/L (3.5-4.5)
--- NOTE | 2024-04-30 08:56 | PROVIDER PROGRESS NOTE ---
Subjective General Admit Date: 04/27/24 Procedure Date: 04/25/24 Post Op Days: 5 Procedure Performed: Ex Lap, right colectomy, abdominal wall washout Other Other Information/Narrative: Pain controlled. Patient was able to increase his activity significantly yesterday and did walk in the [place]. He is tolerating small amounts of food but gets full quickly and still does not have much appetite. He is passing flatus and had a BM again yesterday. No f/c. He is happy to be improving. Exam Exam Gen: no acute distress, alert and oriented CV: RRR Pulm: non labored, on RA Abd: soft, minimal incisional ttp, R lateral incision is slightly erythematous and edematous. No drainage. L SHAMAR with 10mL serous fluid out in last 24 hours, R with 40mL serous fluid in last 24 hours. Ext: 2+ B LE edema Impression/Plan Problem List (1) Abscess, intra-abdominal, postoperative: Problem List Comment Problem List: 28yoM admitted with retroperitoneal abscess after 04/09/24 laparoscopic appendectomy at OSH. - S/p initial I&D of retroperitoneal abscess via rukhsana andres incision on 04/23/24. - S/p return to OR on 04/25/24 for exploratory laparotomy, right colectomy, and abdominal wall wound washout where he was found to have a cecal perforation as well as an enterotomy (within the terminal ileum) communicating with the retroperitoneal abscess. [Retrospective review of admitting CT on 04/22 suggests that these bowel injuries were present on admission but not recognized on the CT prospectively.] - Wound cultures from 04/23 resulted E coli x2 strands and Klebsiella with varied sensitivities - now on cefepime (started 04/27) , flagyl (transitioned to PO 04/29). WBC normalized, up slightly this AM, but patient has not had fevers. Ileus seems to be slowly resolving with +flatus/+BM, no nausea, but minimal appetite. NG out, tolerating full liquids in small amounts, will adat to soft diet today. Appreciate nutrition input. Plan: - Will transition multimodal pain regimen to PO today (tylenol, ibuprofen) - Continue IVF, decreased rate, likely SLIV tomorrow, if tolerating more PO - miller removed, voiding well, encouraged patient to get up to restroom over using urinal in bed - continue SHAMAR drains x2 (left/anterior is intraperitoneal; right/posterior is in the subq space). Plan to remove L (intraperitoneal) drain tomorrow if WBC normal. - Cefepime and flagyl for intraabdominal infection for at least 7 days (started 04/27), flagyl transitioned to PO 04/29 - daily CBC - ppx lovenox (hgb stable since surgery) - encouraged patient to ambulate TID, continue IS and SCDs. PT/OT following. - patient is inpatient status
[2024-04-30] MEDS: IBUPROFEN 600 MG TABLET PO SCH (11:54)
[2024-04-30] MEDS: ACETAMINOPHEN 325 MG TABLET PO SCH (13:57)
[2024-05-01 05:52] LABS: HCT - HEMATOCRIT 31.8 % (42.0-52.0); HGB - HEMOGLOBIN 10.6 g/dL (14.0-18.0); MEAN CORPUSCULAR HEMOGLOBIN 30.2 pg (27.0-31.0); MEAN CORPUSCULAR HGB CONC 33.3 g/dL (32.0-36.0); MEAN CORPUSCULAR VOLUME 90.6 fL (80.0-94.0); MEAN PLATELET VOLUME 8.4 fL (7.4-11.4); RED BLOOD COUNT 3.51 10^6/uL (4.70-6.10); WHITE BLOOD COUNT 11.8 x10^3/uL (4.8-10.8)
--- NOTE | 2024-05-01 08:32 | PROVIDER PROGRESS NOTE ---
Subjective General Admit Date: 04/27/24 Procedure Date: 04/25/24 Post Op Days: 6 Procedure Performed: Ex Lap, right colectomy, abdominal wall washout Other Other Information/Narrative: Pain controlled. Patient increasing activity and able to tolerate a half a sandwich and some soup for lunch yesterday, but felt pretty bloated afterward. Still having decreased appetite and fullness after meals. No real nausea or vomiting. +void. +flatus and BM. Patient happy that [place] is improving[place] get to meals. Exam Exam Gen: no acute distress, alert and oriented CV: RRR Pulm: non labored, on RA Abd: soft, minimal incisional ttp, R lateral incision is slightly erythematous and edematous, stable. No drainage. L SHAMAR with minimal serous fluid out in last 24 hours, R with at least 30mL serous fluid in last 24 hours. Drain I/O's difficult to interpret due to charting. Ext: 2+ B LE edema Impression/Plan Problem List (1) Abscess, intra-abdominal, postoperative: Problem List Comment Problem List: 28yoM admitted with retroperitoneal abscess after 04/09/24 laparoscopic appendectomy at OSH. - S/p initial I&D of retroperitoneal abscess via rukhsana kei incision on 04/23/24. - S/p return to OR on 04/25/24 for exploratory laparotomy, right colectomy, and abdominal wall wound washout where he was found to have a cecal perforation as well as an enterotomy (within the terminal ileum) communicating with the retroperitoneal abscess. [Retrospective review of admitting CT on 04/22 suggests that these bowel injuries were present on admission but not recognized on the CT prospectively.] - Wound cultures from 04/23 resulted E coli x2 strands and Klebsiella with varied sensitivities - now on cefepime (started 04/27) , flagyl (transitioned to PO 04/29). WBC up slightly this AM, but patient has not had fevers. Ileus seems to be slowly resolving with +flatus/+BM, no nausea, but minimal appetite. NG out, tolerating full liquids in small amounts, will adat to soft diet today. Appreciate nutrition input. Plan: - PO multimodal pain regimen (tylenol, ibuprofen) with PO oxycodone, IV dilaudid for breakthough pain - SLIV - miller removed, voiding well, encouraged patient to get up to restroom over using urinal in bed - continue SHAMAR drains x2 (left/anterior is intraperitoneal; right/posterior is in the subq space). I discussed I/O charting with RN. When wbc normal, will consider removing L drain, right drain to remain in place. Every other suture from Rukhsana Kei incision removed this AM. If leukocytosis increases again tomor row, will consider removing remaining sherin and opening incision. - Cefepime and flagyl for intraabdominal infection for at least 7 days (started 04/27), flagyl transitioned to PO 04/29 - daily CBC - ppx lovenox (hgb stable since surgery) - encouraged patient to ambulate TID, continue IS and SCDs. PT/OT following. - patient is inpatient status
[2024-05-01] MEDS: SIMETHICONE CHEW 80 MG TABLET PO PRN (08:43)
[2024-05-02 06:02] LABS: HCT - HEMATOCRIT 32.2 % (42.0-52.0); HGB - HEMOGLOBIN 10.5 g/dL (14.0-18.0); MEAN CORPUSCULAR HEMOGLOBIN 29.6 pg (27.0-31.0); MEAN CORPUSCULAR HGB CONC 32.6 g/dL (32.0-36.0); MEAN CORPUSCULAR VOLUME 90.7 fL (80.0-94.0); MEAN PLATELET VOLUME 8.4 fL (7.4-11.4); RED BLOOD COUNT 3.55 10^6/uL (4.70-6.10); RED CELL DISTRIBUTION WIDTH 13.2 % (12.0-15.0); WHITE BLOOD COUNT 12.4 x10^3/uL (4.8-10.8)
[2024-05-02] MEDS: MULTIVITAMIN W/MINERALS TABLET PO SCH (09:08)
[2024-05-02] MEDS ORDERED: DIATRIZOATE MEGLU/DIATRIZO SOD 30 ML BOTTLE PO ONE (13:07)
--- NOTE | 2024-05-02 13:45 | PROVIDER PROGRESS NOTE ---
Subjective General Admit Date: 04/27/24 Procedure Date: 04/25/24 Post Op Days: 7 Procedure Performed: Ex Lap, right colectomy, abdominal wall washout Other Other Information/Narrative: Patient feels like he's doing a little better today. Tolerating diet. Denies n/v, f/c. Denies diarrhea. +ambulation. He states he is worried his infection is going to come back. Exam Exam Gen: no acute distress, alert and oriented CV: RRR Pulm: non labored, on RA Abd: soft, minimal incisional ttp, R lateral incision is slightly erythematous and edematous (every other staple removed yesterday), stable. No drainage. L SHAMAR with more purulent fluid out in last 24 hours, R with serous fluid in last 24 hours. Drain I/O's difficult to interpret due to charting. Ext: 1+ B LE edema ABX Reporting Has patient been on IV antibiotics over the past 48 hours?: Yes Impression/Plan Problem List (1) Abscess, intra-abdominal, postoperative: (2) Perforated bowel: (3) Postoperative retroperitoneal abscess: (4) H/O right hemicolectomy: Plan 28yoM admitted with retroperitoneal abscess after 04/09/24 laparoscopic appendectomy at OSH. - S/p initial I&D of retroperitoneal abscess via rukhsana kei incision on 04/23/24. - S/p return to OR on 04/25/24 for exploratory laparotomy, right colectomy, and abdominal wall wound washout where he was found to have a cecal perforation as well as an enterotomy (within the terminal ileum) communicating with the retroperitoneal abscess. [Retrospective review of admitting CT on 04/22 suggests that these bowel injuries were present on admission but not recognized on the CT prospectively.] - Wound cultures from 04/23 resulted E coli x2 strands and Klebsiella with varied sensitivities - now on cefepime (started 04/27) , flagyl (transitioned to PO 04/29). WBC up again slightly today, but patient has not had fevers. Ileus seems to be slowly resolving with +flatus/+BM, no nausea, appetite is slowly improving. Tolerating soft diet. Appreciate nutrition input. Plan: - PO multimodal pain regimen (tylenol, ibuprofen) with PO oxycodone, IV dilaudid for breakthough pain - SLIV - continue SHAMAR drains x2 (left/anterior is intraperitoneal; right/posterior is in the subq space). I discussed I/O charting with RN. L drain looking more purulent, R drain with higher output. Every other suture from Rukhsana Kei incision removed 05/01. Leukocytosis slightly worse today, repeat CT abd/pelvis with PO and IV contrast ordered. - Cefepime and flagyl for intraabdominal infection for at least 7 days (started 04/27), flagyl transitioned to PO 04/29 - daily CBC - ppx lovenox (hgb stable since surgery) - encouraged patient to ambulate TID, continue IS and SCDs. PT/OT following. - patient is inpatient status
[2024-05-02] MEDS ORDERED: iohexoL-300 100 ML VIAL ONE (16:21)
--- NOTE | 2024-05-02 18:03 | CT Report ---
PROCEDURE: CT Abdomen/Pelvis W INDICATIONS: h/o cecal perf, s/p R hemicolectomy, wbc rising CONTRAST: OMNI 300 100ML TECHNIQUE: After the administration of intravenous contrast, a CT scan of the abdomen and pelvis was performed. Images were recorded and evaluated at appropriate window settings. Reformats: coronal and sagittal. F or radiation dose reduction, the following was used: automated exposure control, adjustment of mA and /or kV according to patient size. COMPARISON: 04/25/2024 FINDINGS: Image quality: Diagnostic Lower chest: Small bilateral pleural effusions. Subjacent atelectasis. Normal heart size. Small peric ardial effusion. Liver: Unremarkable. Previous hypoattenuating focus in the medial portion of segment 6 is less conspi cuous. Gallbladder and biliary system: Unremarkable, nondilated Pancreas: No ductal dilation Spleen: Not enlarged Adrenals: No discrete nodules Kidneys: No solid mass. No hydronephrosis. Vessels and lymph nodes: The main portal vein appears patent. No abdominal aortic aneurysm. No pathol ogic lymphadenopathy by size criteria. Prominent pelvic lymph nodes are seen, possibly reactive, for example right external iliac node measu res 0.9 cm in short axis. Bowel and peritoneum: Diffuse mesenteric edema and mild to moderate ascites. There are cecal suture lines. Multiple drains are present, one drain terminates in the deep pelvis. A second drain terminates in th e oblique right abdominal wall musculature. Right paracolic gutter collection measures about 5.2 x 2.2 cm (), decreased. No gross pneumoperitoneum. Body wall: Postsurgical changes. Diffuse anasarca. Pelvis: Bladder is unremarkable. Prostate is not well assessed on this study. Bones: Unremarkable IMPRESSION: The right paracolic gutter gas containing collection appears smaller. There are 2 drains entering the body in the right lower quadrant, one of them terminates in the deep pelvis, and the other terminate s in the body wall within the oblique musculature. Mild to moderate ascites. Correlate with fluid analysis for any superimposed peritonitis. There is diffuse mesenteric edema and diffuse anasarca. No small bowel obstruction. Previously seen hypoattenuating liver lesion is less conspicuous. There is no drainable liver abscess . Postsurgical changes of the abdominal wall without drainable collection. Small pleural effusions and small pericardial effusion. Other findings above. Reviewed by: Denny Roca MD on 05/02/2024 6:02 PM PST Approved by: Denny Roca MD on 05/02/2024 6:02 PM PST Station ID: [id number]
[2024-05-02] MEDS: DIATRIZOATE MEGLU/DIATRIZO SOD 30 ML BOTTLE PO ONE (19:02)
[2024-05-02] MEDS: iohexoL-300 100 ML VIAL IVP ONE (19:03)
[2024-05-03 05:12] LABS: HCT - HEMATOCRIT 31.9 % (42.0-52.0); HGB - HEMOGLOBIN 10.3 g/dL (14.0-18.0); MEAN CORPUSCULAR HEMOGLOBIN 29.7 pg (27.0-31.0); MEAN CORPUSCULAR HGB CONC 32.3 g/dL (32.0-36.0); MEAN CORPUSCULAR VOLUME 91.9 fL (80.0-94.0); MEAN PLATELET VOLUME 8.6 fL (7.4-11.4); RED BLOOD COUNT 3.47 10^6/uL (4.70-6.10); RED CELL DISTRIBUTION WIDTH 13.7 % (12.0-15.0); WHITE BLOOD COUNT 10.9 x10^3/uL (4.8-10.8)
--- NOTE | 2024-05-03 14:27 | PROVIDER PROGRESS NOTE ---
Subjective Subjective Pt reports feeling: Improved Subjective: feeling a little better each day. passing gas. no nausea. tolerating liquids well. swelling in legs and arms improved Current Medications Current Medications Current Medications: Current Medications Generic Name Dose Route Start Last Admin Trade Name Freq PRN Reason Stop Dose Admin Acetaminophen 650 mg 04/30/24 13:00 05/03/24 13:26 Acetaminophen 325 Mg Tablet PO 650 mg Q4HR AURE Administration Cefepime HCl 2 gm 04/27/24 09:00 05/03/24 08:16 Cefepime 2 Gm Vial IVP 2 gm BID AURE Administration Enoxaparin Sodium 40 mg 04/27/24 11:00 05/03/24 08:10 Enoxaparin 40 Mg/0.4 Ml Syringe SUBQ 40 mg DAILY AURE Administration Hydromorphone HCl 0.5 mg 04/24/24 07:00 04/29/24 06:00 Hydromorphone 0.5 Mg/0.5 Ml Syringe IVP 0.5 mg Q2H PRN Administration Breakthrough Pain Ibuprofen 600 mg 04/30/24 12:00 05/03/24 12:09 Ibuprofen 600 Mg Tablet PO 600 mg Q6HR AURE Administration Metronidazole 500 mg 04/29/24 08:00 05/03/24 12:09 Metronidazole 250 Mg Tablet PO 05/04/24 07:59 500 mg TIDWM AURE Administration Multivitamins/Minerals 1 tab 05/02/24 08:00 05/03/24 08:10 Multivitamin W/Minerals Tablet PO 1 tab DAILYWM AURE Administration Ondansetron HCl 4 mg 04/22/24 19:47 04/27/24 00:20 Ondansetron 4 Mg/2 Ml Vial IVP 4 mg Q6HR PRN Administration Nausea / Vomiting Simethicone 80 mg 04/29/24 13:37 05/01/24 08:43 Simethicone Chew 80 Mg Tablet PO 80 mg Q6H PRN Administration Abdominal Pain Sodium Chloride 10 ml 04/23/24 16:43 04/30/24 17:25 Sodium Chloride Flush 0.9% 10 Ml Syringe IVP 10 ml PRN PRN Administration NEEDED PER PROVIDER ORDERS Sodium Chloride 10 ml 04/23/24 16:43 05/03/24 08:16 Sodium Chloride Flush 0.9% 10 Ml Syringe IVP 10 ml 0100,0900,1700 AURE Administration Objective Vital Signs/Intake & Output Reviewed Vital Signs: Yes Vital Signs: Vital Signs x48h Temp Pulse Resp BP Pulse Ox 05/03/24 12:15 36.8 C 84 16 105/56 L 98 05/03/24 08:01 36.5 C 59 L 16 109/61 97 Intake & Output: Intake & Output 04/30/24 05/01/24 05/02/24 05/03/24 23:59 23:59 23:59 23:59 Intake Total 2662 / 2662 1530 / 1530 677 / 677 970 / 970 Output Total 65 / 65 93 / 93 73 / 73 50 / 50 Balance 2597 / 2597 1437 / 1437 604 / 604 920 / 920 Objective General Appearance: positive No acute distress and Alert Respiratory: positive No respiratory distress Abdomen: positive Non-tender, No distention and Other (incisions c/d/i without erythema. jps purulent) Neurologic/Psychiatric: positive Oriented x3 Lab Results 05/03/24 04:45 04/30/24 04:55 Other Labs: Lab Results x24hrs 05/03/24 Range/Units 04:45 WBC 10.9 H (4.8-10.8) x10^3/uL RBC 3.47 L (4.70-6.10) 10^6/uL Hgb 10.3 L (14.0-18.0) g/dL Hct 31.9 L (42.0-52.0) % MCV 91.9 (80.0-94.0) fL MCH 29.7 (27.0-31.0) pg MCHC 32.3 (32.0-36.0) g/dL RDW 13.7 (12.0-15.0) % Plt Count 460 H (130-450) 10^3/uL MPV 8.6 (7.4-11.4) fL Diagnostic Imaging Diagnostic Imaging Results: positive Read independently (small abscess next to the anastomosis. no contrast extravasation. drain present at the abscess) Assessment/Plan Problem List (1) Abscess, intra-abdominal, postoperative: Impression: improving daily. continue present care. lives alone. does not feel well enough to go home at this time (2) Perforated bowel: (3) Postoperative retroperitoneal abscess: (4) H/O right hemicolectomy:
--- NOTE | 2024-05-04 15:24 | PROVIDER PROGRESS NOTE ---
Subjective Subjective Pt reports feeling: Improved Subjective: looking much better and feeling better. up in chair and with company Current Medications Current Medications Current Medications: Current Medications Generic Name Dose Route Start Last Admin Trade Name Freq PRN Reason Stop Dose Admin Acetaminophen 650 mg 04/30/24 13:00 05/04/24 12:05 Acetaminophen 325 Mg Tablet PO 650 mg Q4HR AURE Administration Cefepime HCl 2 gm 04/27/24 09:00 05/04/24 08:46 Cefepime 2 Gm Vial IVP 2 gm BID AURE Administration Enoxaparin Sodium 40 mg 04/27/24 11:00 05/04/24 08:45 Enoxaparin 40 Mg/0.4 Ml Syringe SUBQ 40 mg DAILY AURE Administration Hydromorphone HCl 0.5 mg 04/24/24 07:00 04/29/24 06:00 Hydromorphone 0.5 Mg/0.5 Ml Syringe IVP 0.5 mg Q2H PRN Administration Breakthrough Pain Ibuprofen 600 mg 04/30/24 12:00 05/04/24 12:05 Ibuprofen 600 Mg Tablet PO 600 mg Q6HR AURE Administration Multivitamins/Minerals 1 tab 05/02/24 08:00 05/04/24 08:46 Multivitamin W/Minerals Tablet PO 1 tab DAILYWM AURE Administration Ondansetron HCl 4 mg 04/22/24 19:47 04/27/24 00:20 Ondansetron 4 Mg/2 Ml Vial IVP 4 mg Q6HR PRN Administration Nausea / Vomiting Simethicone 80 mg 04/29/24 13:37 05/01/24 08:43 Simethicone Chew 80 Mg Tablet PO 80 mg Q6H PRN Administration Abdominal Pain Sodium Chloride 10 ml 04/23/24 16:43 04/30/24 17:25 Sodium Chloride Flush 0.9% 10 Ml Syringe IVP 10 ml PRN PRN Administration NEEDED PER PROVIDER ORDERS Sodium Chloride 10 ml 04/23/24 16:43 05/04/24 08:46 Sodium Chloride Flush 0.9% 10 Ml Syringe IVP 10 ml 0100,0900,1700 AURE Administration Objective Vital Signs/Intake & Output Reviewed Vital Signs: Yes Vital Signs: Vital Signs x48h Temp Pulse Resp BP Pulse Ox 05/04/24 12:09 36.9 C 64 16 112/52 L 96 05/04/24 08:25 36.9 C 55 L 16 115/51 L 96 Intake & Output: Intake & Output 05/01/24 05/02/24 05/03/24 05/04/24 23:59 23:59 23:59 23:59 Intake Total 1530 / 1530 677 / 677 1238 / 1238 1055 / 1055 Output Total 93 / 93 73 / 73 80 / 80 22 / 22 Balance 1437 / 1437 604 / 604 1158 / 1158 1033 / 1033 Objective General Appearance: positive No acute distress and Alert Eyes Bilateral: positive PERRL, EOMI and No scleral icterus Respiratory: positive No respiratory distress Abdomen: positive Non-tender, No distention and Other (he state one drain still putting out a lot. other drain little. incisions looked very good yesterday. he denies redness today. ) Neurologic/Psychiatric: positive Oriented x3 Lab Results 05/03/24 04:45 04/30/24 04:55 Assessment/Plan Problem List (1) Abscess, intra-abdominal, postoperative: Impression: much improved. d/c home soon. he states he would prefer one drain out before going home (2) Perforated bowel: (3) Postoperative retroperitoneal abscess: (4) H/O right hemicolectomy:
--- NOTE | 2024-05-05 12:26 | PROVIDER PROGRESS NOTE ---
Subjective General Admit Date: 04/27/24 Procedure Date: 04/25/24 Post Op Days: 10 Procedure Performed: Ex Lap, right colectomy, abdominal wall washout Other Other Information/Narrative: Tolerating diet, no nausea. Had not passed BM x6 days but did have one today. Is ambulating independently. Pain is controlled on tylenol/motrin. Drain outputs are low: peritoneal drain still thick purulent; abdominal wall drain more sero-purulent with some purulence pooling posterior to the incision and not captured by the drain. The RLQ incision is CDI without drainage however, and the erythema is markedly improved. Midline incision no erythematous, is CDI. Review of Systems Status of ROS: 10 or more systems reviewed and unremarkable except as noted in history and below Exam Constitutional normal general appearance and no apparent distress laying in bed HENMT normocephalic Respiratory normal respiratory effort Cardiovascular normal heart rate noted Gastrointestinal soft, nondistended. Midline incision is CDI with sherin. The intraperitoneal drain is low volume but thick purulent character - remains in place. RLQ incision is CDI. The residual erythema is minimal and only in the dependent position posterior to the incision - this is the only area that has ttp , there is scant purulent drainage expressible from the drain site but the drain itself is thin.minimal volume seropurulent. - removed this drain today. Genitourinary clear yellow urine Extremities normal to inspection Psychiatry oriented x3 Skin skin color normal ABX Reporting Has patient been on IV antibiotics over the past 48 hours?: Yes Impression/Plan Problem List (1) Abscess, intra-abdominal, postoperative: Plan: 28yoM admitted with retroperitoneal abscess after 04/09/24 lap appy at OSH. - S/p initial I&D of retroperitoneal abscess via rukhsana andres incision on 04/23/24. - S/p return to OR on 04/25/24 for exploratory laparotomy, right colectomy, and abdominal wall wound washout where he was found to have a cecal perforation as well as an enterotomy (within the terminal ileum) communicating with the retroperitoneal abscess. [Retrospective review of admitting CT on 04/22 suggests that these bowel injuries were present on admission but not recognized on the CT prospectively.] - Wound cultures from 04/23 resulted E coli x2 strands, Klebsiella, and bacteroides. Has been on Cefepime/flagyl since 04/27 (flagyl was dc'd yesterday but I resumed it today to ensure bacteroides coverage given intraperitoneal drain character). WBC has been ranging between 10-13, afebrile. Overall he is doing well with ileus resolved, pain well controlled, and ambulating/voiding at baseline. CT on 05/02/24 showed decreased size of right colic gutter abscess. Abdominal wall drain removed on 05/05/2405/05: Remaining issue is the thick purulent character or his intraperitoneal drain, and that there is not a PO abx regimen to cover his cultures. He also lives in the [facility] which is a suboptimal setting to discharge with a drain in place. - will continue the intraperitoneal drain today along with cefepime/flagyl, and repeat CBC tomorrow Plan: - scheduled PO tyl/motrin with prn PO oxycodone for breakthrough pain - regular diet - add miralax - continue intraperitoneal SHAMAR drain - IV Cefepime + PO Flagyl for intraabdominal infection - ppx lovenox - ambulate TID, continue IS and SCDs - continue inpatient status Samia Wei DO, FACS General Surgeon, [facility] (2) Perforated bowel: (3) Postoperative retroperitoneal abscess: (4) H/O right hemicolectomy:
[2024-05-05] MEDS: polyethylene glycoL 3350 17 GM PACKET PO SCH (12:37)
[2024-05-05] MEDS: metroNIDAZOLE 250 MG TABLET PO SCH (12:38)
[2024-05-06 06:16] LABS: BASOPHILS % (AUTO) 0.4 %; EOSINOPHILS # (AUTO) 0.3 10^3/uL (0.0-0.7); EOSINOPHILS % (AUTO) 2.7 %; HCT - HEMATOCRIT 31.6 % (42.0-52.0); HGB - HEMOGLOBIN 10.3 g/dL (14.0-18.0); LYMPHOCYTES % (AUTO) 19.4 %; MEAN CORPUSCULAR HEMOGLOBIN 29.9 pg (27.0-31.0); MEAN CORPUSCULAR HGB CONC 32.6 g/dL (32.0-36.0); MEAN CORPUSCULAR VOLUME 91.6 fL (80.0-94.0); MONOCYTES # (AUTO) 0.7 10^3/uL (0.0-1.0); MONOCYTES % (AUTO) 6.6 %; NEUTROPHILS # (AUTO) 7.3 10^3/uL (1.5-6.6); NEUTROPHILS % (AUTO) 69.7 %; PLT - PLATELET COUNT 504 10^3/uL (130-450); RED BLOOD COUNT 3.45 10^6/uL (4.70-6.10); RED CELL DISTRIBUTION WIDTH 14.4 % (12.0-15.0); WHITE BLOOD COUNT 10.5 x10^3/uL (4.8-10.8)
--- NOTE | 2024-05-06 17:13 | PROVIDER PROGRESS NOTE ---
Subjective General Admit Date: 04/27/24 Procedure Date: 04/25/24 Post Op Days: 11 Procedure Performed: Ex Lap, right colectomy, abdominal wall washout Other Other Information/Narrative: DANIEL - remains HDN/AF/tolerating diet/ambulating. Pain is improved since removing the abdominal wall drain yesterday. There is still some purulent drainage from that drain site, very low volume. The intraabdominal drain is still purulent. Review of Systems Status of ROS: 10 or more systems reviewed and unremarkable except as noted in history and below Exam Constitutional normal general appearance and no apparent distress laying in bed HENMT normocephalic Respiratory normal respiratory effort Cardiovascular normal heart rate noted Gastrointestinal soft, nondistended. Midline incision is CDI - removed sherin today The intraperitoneal drain is low volume but thick purulent character - remains in place. RLQ incision is CDI - removed sherin. today. The residual erythema is minimal and only in the dependent position posterior to the incision - this is the only area that has ttp , there is scant purulent drainage expressible from the drain site Extremities normal to inspection Psychiatry oriented x3 Skin skin color normal ABX Reporting Has patient been on IV antibiotics over the past 48 hours?: Yes Impression/Plan Problem List (1) Abscess, intra-abdominal, postoperative: Plan: 28yoM admitted with retroperitoneal abscess after 04/09/24 lap appy at OSH. - S/p initial I&D of retroperitoneal abscess via rukhsana andres incision on 04/23/24. - S/p return to OR on 04/25/24 for exploratory laparotomy, right colectomy, and abdominal wall wound washout where he was found to have a cecal perforation as well as an enterotomy (within the terminal ileum) communicating with the retroperitoneal abscess. [Retrospective review of admitting CT on 04/22 suggests that these bowel injuries were present on admission but not recognized on the CT prospectively.] - Wound cultures from 04/23 resulted E coli x2 strands, Klebsiella, and bacteroides. Has been on Cefepime/flagyl since 04/27 (flagyl was dc'd yesterday but I resumed it today to ensure bacteroides coverage given intraperitoneal drain character). WBC remains normal, 10 today, afebrile. Overall he is doing well with ileus resolved, pain well controlled, and ambulating/voiding at baseline. CT on 05/02/24 showed decreased size of right colic gutter abscess. Abdominal wall drain removed on 05/05/24 Incisional sherin removed 05/06/2405/06: Remaining issue is the thick purulent character or his intraperitoneal drain. Today I instituted drain flushes to see if it will clear - 20cc NS TID. There is not a PO abx regimen to cover his polymicrobial cultures, and despite his WBC being normal, I do not want to stop the antibiotics while the drain character is purulent. He also lives in the [facility] which is a suboptimal setting to discharge with a drain in place. Plan: - change PO tyl/motrin to PRN with prn PO oxycodone for breakthrough pain - regular diet - miralax BID (went 6d without BM, last BM 05/05) - continue intraperitoneal SHAMAR drain with NS flushes (20cc TID) - IV Cefepime + PO Flagyl for intraabdominal infection - ppx lovenox - ambulate TID, continue IS and SCDs - continue inpatient status Samia Wei DO, FACS General Surgeon, [facility] (2) Perforated bowel: (3) Postoperative retroperitoneal abscess: (4) H/O right hemicolectomy:
[2024-05-06] MEDS: IBUPROFEN 600 MG TABLET PO PRN (20:45)
[2024-05-07 06:13] LABS: BASOPHILS # (AUTO) 0.1 10^3/uL (0.0-0.1); BASOPHILS % (AUTO) 0.6 %; EOSINOPHILS # (AUTO) 0.2 10^3/uL (0.0-0.7); EOSINOPHILS % (AUTO) 2.8 %; HCT - HEMATOCRIT 33.9 % (42.0-52.0); HGB - HEMOGLOBIN 10.8 g/dL (14.0-18.0); LYMPHOCYTES # (AUTO) 1.8 10^3/uL (1.5-3.5); LYMPHOCYTES % (AUTO) 20.6 %; MEAN CORPUSCULAR HEMOGLOBIN 29.8 pg (27.0-31.0); MEAN CORPUSCULAR HGB CONC 31.9 g/dL (32.0-36.0); MEAN CORPUSCULAR VOLUME 93.4 fL (80.0-94.0); MEAN PLATELET VOLUME 8.3 fL (7.4-11.4); MONOCYTES # (AUTO) 0.6 10^3/uL (0.0-1.0); MONOCYTES % (AUTO) 6.7 %; NEUTROPHILS # (AUTO) 5.9 10^3/uL (1.5-6.6); NEUTROPHILS % (AUTO) 68.1 %; PLT - PLATELET COUNT 564 10^3/uL (130-450); RED BLOOD COUNT 3.63 10^6/uL (4.70-6.10); RED CELL DISTRIBUTION WIDTH 14.6 % (12.0-15.0); WHITE BLOOD COUNT 8.6 x10^3/uL (4.8-10.8)
[2024-05-07] MEDS: oxyCODONE 5 MG TABLET PO PRN (10:29)
[2024-05-07] MEDS: CEFEPIME 2 GM in SODIUM CHLORIDE 0.9% MINIBAG 100 ML IV SCH (10:29)
--- NOTE | 2024-05-07 15:49 | PROVIDER PROGRESS NOTE ---
Subjective General Admit Date: 04/27/24 Procedure Date: 04/25/24 Post Op Days: 12 Procedure Performed: Ex Lap, right colectomy, abdominal wall washout Other Other Information/Narrative: HDN/AF. Tolerating diet, ambulating. After removing all sherin yesterday, today the midline wound opened just at the umbilicus with release of 2-3cc purulent fluid. It was cultured, but the volume was quite limited with no cellulitis. There is still a trace amount of purulence in the dependent portion posterior to the RLQ incision, drainaing via the drain site (drain removed. Intraabdominal wound clearing some with flushes. Review of Systems Status of ROS: 10 or more systems reviewed and unremarkable except as noted in history and below Exam Constitutional normal general appearance and no apparent distress Respiratory normal respiratory effort Cardiovascular normal heart rate noted and regular rhythm noted Gastrointestinal abdomen soft to palpation, nontender to palpation and nondistended All sherin removed. Midline wound with 1cm of skin dehiscence at umbilicus. Intraperitoneal drain sero-purulent now. RLQ incision CDI, with decreased erythema posterior to it and decreased purulent drainge from prior drain site. Extremities normal to inspection Psychiatry oriented x3 Skin skin color normal Impression/Plan Problem List (1) Abscess, intra-abdominal, postoperative: Plan: 28yoM admitted with retroperitoneal abscess after 04/09/24 lap appy at OSH. - S/p initial I&D of retroperitoneal abscess via rukhsana andres incision on 04/23/24. - S/p return to OR on 04/25/24 for exploratory laparotomy, right colectomy, and abdominal wall wound washout where he was found to have a cecal perforation as well as an enterotomy (within the terminal ileum) communicating with the retroperitoneal abscess. [Retrospective review of admitting CT on 04/22 suggests that these bowel injuries were present on admission but not recognized on the CT prospectively.] - Wound cultures from 04/23 resulted E coli x2 strands, Klebsiella, and bacteroides. Has been on Cefepime/flagyl since 04/27 (flagyl was dc'd yesterday but I resumed it today to ensure bacteroides coverage given intraperitoneal drain character). WBC remains normal, 10 today, afebrile. Overall he is doing well with ileus resolved, pain well controlled, and ambulating/voiding at baseline. CT on 05/02/24 showed decreased size of right colic gutter abscess. Abdominal wall drain removed on 05/05/24 Incisional sherin removed 05/06/24 Small skin dehiscence at umbilicus with few cc purulent drainage on 05/07 - f/u culture 05/07: Remaining issue is the purulent character or his intraperitoneal drain, it is clearing somewhat with flushing the drain - - 20cc NS TID. There is not a PO abx regimen to cover his polymicrobial cultures, and despite his WBC being normal, I do not want to stop the antibiotics while the drain character is purulent. He also lives in the [facility] which is a suboptimal setting to discharge with a drain in place. Plan: - PO tyl/motrin PRN with prn PO oxycodone for breakthrough pain - regular diet - miralax BID (went 6d without BM, last BM 05/05) - continue intraperitoneal SHAMAR drain with NS flushes (20cc TID) - IV Cefepime + PO Flagyl for intraabdominal infection - ppx lovenox - ambulate TID, continue IS and SCDs - continue inpatient status Samia Wei DO, FACS General Surgeon, [facility] (2) Perforated bowel: (3) Postoperative retroperitoneal abscess: (4) H/O right hemicolectomy:
[2024-05-07] MEDS: ACETAMINOPHEN 325 MG TABLET PO PRN (20:46)
--- NOTE | 2024-05-08 14:27 | PROVIDER PROGRESS NOTE ---
Subjective General Admit Date: 04/27/24 Procedure Date: 04/25/24 Post Op Days: 13 Procedure Performed: Ex Lap, right colectomy, abdominal wall washout Other Other Information/Narrative: Skin dehiscence at umbilicus with scant serosanguinous drainage, no further purulence. Drainage from drain site and erythema posterior to RLQ incision both improving. Intraabdominal drain remains thick/purulent despite 48hours of TID flushes. O/w DANIEL - continues to tolerate diet/minimal pain/no nausea. Review of Systems Status of ROS: 10 or more systems reviewed and unremarkable except as noted in history and below Exam Constitutional normal general appearance and no apparent distress laying in bed HENAK normocephalic Respiratory normal respiratory effort Cardiovascular normal heart rate noted and regular rhythm noted Gastrointestinal abdomen soft to palpation, nontender to palpation and nondistended All sherin removed. Midline wound with 1cm of skin dehiscence at umbilicus - scant ssf. Intraperitoneal drain thick purulent. RLQ incision CDI, decreased erythema posterior to it and scant drainage from prior drain site. Genitourinary Extremities normal to inspection Psychiatry oriented x3 Skin skin color normal Impression/Plan Problem List (1) Abscess, intra-abdominal, postoperative: Plan: 28yoM admitted with retroperitoneal abscess after 04/09/24 lap appy at OSH. - S/p initial I&D of retroperitoneal abscess via rukhsana andres incision on 04/23/24. - S/p return to OR on 04/25/24 for exploratory laparotomy, right colectomy, and abdominal wall wound washout where he was found to have a cecal perforation as well as an enterotomy (within the terminal ileum) communicating with the retroperitoneal abscess. [Retrospective review of admitting CT on 04/22 suggests that these bowel injuries were present on admission but not recognized on the CT prospectively.] - Wound cultures from 04/23 resulted E coli x2 strands, Klebsiella, and bacteroides. Has been on Cefepime/flagyl since 04/27 (flagyl was dc'd yesterday but I resumed it today to ensure bacteroides coverage given intraperitoneal drain character). WBC remains normal, 10 today, afebrile. Overall he is doing well with ileus resolved, pain well controlled, and ambulating/voiding at baseline. CT on 05/02/24 showed decreased size of right colic gutter abscess. Abdominal wall drain removed on 05/05/24 Incisional sherin removed 05/06/24 Small skin dehiscence at umbilicus with few cc purulent drainage on 05/07 - scant further drainage, f/u culture 05/08: Remaining issue is the thick purulent character or his intraperitoneal drain, which only transiently cleared with flushing the drain. There is not a PO abx regimen to cover his polymicrobial cultures, and despite his WBC being normal, I do not want to stop the antibiotics while the drain character is purulent. He also lives in the [facility] which is a suboptimal setting to discharge with a drain in place. Will repeat CT with oral contrast tomorrow to ensure no bowel leak. Plan: - PO tyl/motrin PRN with prn PO oxycodone for breakthrough pain - regular diet - miralax BID (went 6d without BM, last BM 05/05) - continue intraperitoneal SHAMAR drain - IV Cefepime + PO Flagyl for intraabdominal infection - ppx lovenox - ambulate TID, continue IS and SCDs - continue inpatient status Samia Wei DO, FACS General Surgeon, [facility] (2) Perforated bowel: (3) Postoperative retroperitoneal abscess: (4) H/O right hemicolectomy:
[2024-05-09] MEDS ORDERED: DIATRIZOATE MEGLU/DIATRIZO SOD 30 ML BOTTLE PO ONE (08:26)
[2024-05-09] MEDS ORDERED: iohexoL-300 100 ML VIAL ONE (10:38)
--- NOTE | 2024-05-09 13:05 | CT Report ---
PROCEDURE: CT Abdomen/Pelvis W INDICATIONS: rule out colonic leak. PO CONTRAST TO T-COLON CONTRAST: omni 300, 100 TECHNIQUE: After the administration of intravenous contrast, a CT scan of the abdomen and pelvis was performed. Images were recorded and evaluated at appropriate window settings. Reformats: coronal and sagittal. F or radiation dose reduction, the following was used: automated exposure control, adjustment of mA and /or kV according to patient size. COMPARISON: 04/22/2024, 04/25/2024, 05/02/2024. FINDINGS: Image quality: Diagnostic. Lower chest: Bilateral pleural effusions and bibasilar atelectasis have resolved. Liver: No solid mass. Gallbladder: No radiopaque stones or wall thickening. Biliary tree: No intrahepatic or extrahepatic dilation, accounting for age. Spleen: No splenomegaly. Pancreas: No pancreatic ductal dilation. Adrenals: No adrenal nodule. Kidneys and ureters: No hydronephrosis. No renal cystic lesion which requires follow up. No solid mas s. Stomach, bowel and peritoneum: No gastric or small bowel dilation. No abnormal wall thickening. Jacks on-Chavez type drain in the right abdomen extending into the left pelvis. Appendectomy. Resolution of right paracolic gutter abscess. No abscess identified. Fixation of contrast. Bowel loops have a normal caliber. There are not edematous. Moderately large fe jillian load. Lymph nodes: No central or retroperitoneal adenopathy. Vessels: No infrarenal aortic aneurysm. Patent portal vein. PELVIS Reproductive organs: Unremarkable. Bladder: No abnormal wall thickening, accounting for underdistention. Pelvic lymph nodes: No pelvic adenopathy by size criteria. Bones: No aggressive osseous abnormality. Other: No significant ventral or inguinal hernia. IMPRESSION: 1. Relatively recent appendectomy. 2. Resolution of postoperative abscess. Drain still in place. No abscess cavities or inflamed bowel l oops are identified. 3. No extravasation of contrast. 4. Resolution of bilateral pleural effusions and bibasilar atelectasis. Reviewed by: Philip Turcios MD on 05/09/2024 1:04 PM PST Approved by: Philip Turcios MD on 05/09/2024 1:04 PM PST Station ID: [id number]
--- NOTE | 2024-05-09 13:17 | XRAY Report ---
PROCEDURE: XR No-Charge 1V Abdomen INDICATIONS: ensure PO contrast progression TECHNIQUE: 1 view of the abdomen were acquired. COMPARISON: CT 05/09/2024 FINDINGS: Surgical changes and devices: Surgical drain projects over the deep pelvis. Suture wire projects ove r the right mid abdomen. Bowel: Large colonic stool load. Intraluminal contrast is seen within the small and large bowel. Soft tissues: No masses; visualized solid organ contours appear normal in size. No suspicious abdom inal calcifications. Bones: No suspicious bony abnormalities. IMPRESSION: Intraluminal contrast seen within the large and small bowel. Reviewed by: Clement Jacques MD on 05/09/2024 1:15 PM PST Approved by: Clement Jacques MD on 05/09/2024 1:15 PM PST Station ID: [id number]
[2024-05-09 16:46] VITALS: BP 113/59; TEMP 98.4; O2SAT 97
[2024-05-09] MEDS: DIATRIZOATE MEGLU/DIATRIZO SOD 30 ML BOTTLE PO ONE (18:08)
[2024-05-09] MEDS: iohexoL-300 100 ML VIAL IVP ONE (18:09)
--- NOTE | 2024-05-12 21:23 | Discharge Summary ---
"Discharge Summary Admit Date: 04/23/24 Discharge Date: 05/09/24 Discharging Provider: Samia Wei DO Primary Care Provider: Merle/active duty Code Status: Attempt Resuscitation DIAGNOSES Admission Diagnoses: Postoperative intraabdominal abscess Discharge Diagnoses with Status of Each Condition: Post-operative intraabdominal abscess - improved HPI History of Present Illness: Nena is a 28 year old male who underwent laparoscopic appendectomy 2 weeks ago while visiting family in [facility]. He did well initially but recently developed similar symptoms with fatigue and RLQ pain with movement. He denies diarrhea, fevers, or chills. He tells me that his appendectomy was uncomplicated and that he did not have ruptured appendicitis. He presented to the ED last night and was found to have a leukocytosis of 22,[address] scan which was read as a right lower quadrant abscess. As our facility was full yesterday, he remained in the ED and was started on IV Zosyn with the plan to offer IR drainage today. This morning he felt somewhat better and his leukocytosis improved. My review of the CT confirmed the presence of a RLQ abscess but I also suspected that there was a fecalith within the fluid that was not recorded on the official CT. I reviewed the CT with another radiologist and he agreed. I decided to cancel the IR drainage procedure and offer open I&D of the abscess site under general anesthesia so that the abscess is cleared of the purulence and the fecalith. As we have bed availability at this time, the procedure will be performed at this facility later today. CONSULTS | PROCEDURES Procedures: 04/23/24: I&D of retroperitoneal abscess (James) 04/25/24: Exploratory laparotomy, right colectomy, and abdominal wall wound washout (Sanjuana) HOSPITAL COURSE Hospital Course: Patient was admitted and underwent incision and drainage of right retroperitoneal postoperative abscess on 04/23. He did not improve and repeat CT showed leak from colon into abscess cavity, thus he returned to the operating room two days later for exploratory laparotomy, abdominal wall wound washout, and because of findings of a colonic perforation into the abscess cavity, a right colectomy with primary anastomosis. His wound cultures grew polymicrobial results and he was transitioned from empiric antibiotics to Cefepime in the hospital. His early postoperative ileus resolved, his milelr was removed promptly, and he began ambulating and voiding at baseline. He remained in the hospital for 2 weeks postoperatively until his two drains cleared from purulent character. He had a CT on 05/02 showing decreased size of abscess. The abdominal wall drain was removed on 05/05. His sherin were removed on 05/06. His intraabdominal drain cleared somewhat with flushes. He had another CT on 05/09 with oral contrast that confirmed no bowel or anastomotic leak. intraperitoneal drain was removed and he was discharged to home on 05/09. He will follow up in surgery clinic in two weeks. ALLERGIES Allergies Allergy/AdvReac Type Severity Reaction Status Date / Time No Known Drug Allergies Allergy Verified 04/22/24 12:43 MEDICATIONS Ambulatory Orders Medication Instructions Recorded Confirmed acetaminophen 500 mg tablet 1,000 mg (2 x 500 mg) PO Q8HR PRN 05/09/24 post-op pain #60 tabs ibuprofen 800 mg tablet 800 mg PO Q8H PRN post-op pain 05/09/24 #30 tabs oxycodone 5 mg tablet 5 mg PO Q4H PRN breakthrough pain 05/09/24 #5 tabs polyethylene glycol 3350 17 17 g PO DAILY PRN constipation 05/09/24 gram/dose oral powder #238 grams PHYSICAL EXAM AT DISCHARGE General Appearance: positive No acute distress Respiratory: positive No respiratory distress Cardiovascular: positive Regular rate & rhythm Abdomen: positive Non-tender, No distention and Other (incisions intact except for 1cm skin dehiscence of midline incision at umbilicus. Scant drainage from SHAMAR sites. ) Skin: positive Color nml Extremities: positive Non-tender and Full ROM Neurologic/Psychiatric: positive Oriented x3 LABS 05/07/24 05:12 04/30/24 04:55 SEPSIS Current Stage of Sepsis: Resolved Possible source of Sepsis: GI tract/intra-abdominal FOLLOW UP Follow Up: [address] Wei TIME SPENT Time Spent in Discharge (Minutes): 30 Discharge Plan Discharge Patient Disposition: Home, Self Care Condition: Stable Medically Cleared Date:: 05/09/24 Prescriptions: New ibuprofen 800 mg tablet 800 mg PO Q8H PRN (Reason: post-op pain ) Qty: 30 0RF acetaminophen 500 mg tablet 1,000 mg PO Q8HR MDD 4000 mg PRN (Reason: post-op pain) Qty: 60 0RF oxycodone 5 mg tablet 5 mg PO Q4H PRN (Reason: breakthrough pain) Qty: 5 0RF Rx Instructions: Take with food. Do Not drive while taking medication. polyethylene glycol 3350 17 gram/dose powder 17 g PO DAILY PRN (Reason: constipation) Qty: 238 0RF Rx Instructions: use while taking narcotic pain medication Discontinued ibuprofen 200 mg capsule 200 mg PO Q8H Activity Restrictions: Activity as Tolerated Activity Restrictions/Additional Instructions: DIET - You may resume your normal diet if there is no nausea or vomiting. You may want to avoid spicy, greasy, or heavy foods today to minimize gas. - If nausea or vomiting occurs, don't eat or drink anything for one hour. Then start drinking small amounts of clear liquids. Later, add crackers, gradually building up to your usual diet. ACTIVITY INSTRUCTIONS * No lifting more than 20 pounds for 4 weeks * May shower normally DRESSING CARE * Cover drain sites and opening in midline incision with gauze to collect any drainage. DISCHARGE INSTRUCTIONS * Please call the General Surgery Clinic ([phone]) for any questions, redness or drainage at incision, worsening pain/nausea/vomiting/fever. * Go to the Emergency Room after hours for severe symptoms. * Follow up in 1.5 weeks (May 3-4) MEDICATIONS * Use Tylenol (acetaminophen) and Motrin (ibuprofen) on a scheduled basis for the first 3-5 days. * Use Oxycodone (a narcotic) for breakthrough pain. Do not drive while taking Oxycodone. * Oxycodone will call cause constipation - drink plenty of water, and use [id number] Miralax as needed. ANESTHESIA PRECAUTIONS Anesthesia and medications given during surgery remain in your body up to 24 hours. This may slow reaction time and/or decrease coordination. FOR THE NEXT 24 HOURS: - Have a responsible person with you - Avoid any activity that requires you to be alert and coordinated - DO NOT DRIVE a motor vehicle for 24 hours or as long as you are taking opoid pain medication - Do not drink alcoholic beverages - Do not smoke unattended Patient Date Escort Date RN Date Diet: Regular Care Plan Goals: 2 weeks convalescent leave at home, followed by 2 weeks return to work at light duty/no physical training Print Language: Nepali Patient Instructions: Surgery Anesthesia After Stand Alone Forms: PCP List"
== END 2024-05-09 17:44 | disposition home or self-care (01) | DRG 853 ==
LOC: EDBD → ED 12:12 → MS3 04-23 15:12 → SDS 04-23 15:12 → MS3 04-23 15:42
PROVIDERS: ADMIT Surgery; ATTEND Surgery
DX: T81.31XA Disruption of external operation (surgical) wound, not elsewhere classified, initial encounter; K63.1 Perforation of intestine (nontraumatic); A41.9 Sepsis, unspecified organism; B96.20 Unspecified Escherichia coli [E. coli] as the cause of diseases classified elsewhere; K91.89 Other postprocedural complications and disorders of digestive system; K68.11 Postprocedural retroperitoneal abscess; K68.9 Other disorders of retroperitoneum; K56.41 Fecal impaction; R60.0 Localized edema; K56.7 Ileus, unspecified; Y83.6 Removal of other organ (partial) (total) as the cause of abnormal reaction of the patient, or of later complication, without mention of misadventure at the time of the procedure; Z90.49 Acquired absence of other specified parts of digestive tract; B96.1 Klebsiella pneumoniae [K. pneumoniae] as the cause of diseases classified elsewhere; Y92.239 Unspecified place in hospital as the place of occurrence of the external cause